=== PATIENT | female | born 1940 | race Caucasian/White ===

== ENCOUNTER 2021-01-22 11:11 | Emergency (ER) | payer MEDICARE, SELFPAY ==
[2021-01-22 11:12] VITALS: BP 167/100; PULSE 82; RESP 18; TEMP 36.5; O2SAT 97; BMI 31.1
--- NOTE | 2021-01-22 11:25 | ECG_ITS ---
APPROVED REPORT Exam: Resting ECG HR:65 bpm ECG Measurements Heart Rate 65 AXES [place] 170 P 49 QRSd 88 QRS 19 QT 426 T 64 QTc 443 Conclusion Normal sinus rhythm Poor R wave progression, previously noted Abnormal ECG Electronically signed by : Marky Grubbs MD 01/23/2021 22:12:05
[2021-01-22 11:43] LABS: Basophils % 0.3 % (0.1-2.0); Eosinophils % 0.2 % (0.1-12.0); Hematocrit 43.8 % (37.0-47.0); Hemoglobin 14.4 g/dL (12.2-16.2); Lymphocytes # 0.8 K/mm3 (0.7-4.5); Lymphocytes % 11.1 % (10-50); Mean Corpuscular HGB Conc 32.8 g/dL (31.8-35.4); Mean Corpuscular Hemoglobin 30.1 pg (27.0-31.2); Mean Corpuscular Volume 91.7 fl (81-99); Mean Platelet Volume 7.3 fl (7.4-10.4); Monocytes # 0.2 K/mm3 (0.1-1.0); Monocytes % 2.9 % (1.7-9.3); Neutrophils % 85.5 % (37.0-80.0); Platelet Count 332 K/mm3 (142-424); Red Blood Count 4.78 M/mm3 (4.20-5.40); Red Cell Distribution Width 13.1 % (11.5-17.5)
[2021-01-22 11:48] LABS: MANUAL DIFFERENTIAL MANUAL DIFFERENTIAL (MANUAL DIFF)
[2021-01-22 12:05] LABS: Alanine Aminotransferase 29 U/L (12-78); Albumin Level 4.1 g/dl (3.5-5.0); Albumin/Globulin Ratio 1.5 (1.1-1.8); Alkaline Phosphatase 98 U/L (38-126); Anion Gap 10.2 mEq/L (5-15); Aspartate Amino Transferase 29 U/L (14-36); Bilirubin,Total 0.5 mg/dl (0.2-1.3); Blood Urea Nitrogen 16 mg/dl (7-17); Calcium 8.8 mg/dl (8.4-10.2); Carbon Dioxide 28 mmol/L (22.0-30.0); Chloride 99 mmol/L (98-107); Creatinine Clearance Estimated 55 mL/min (50-200); Estimated Glomerular Filt Rate 69 ml/min (>60); GFR (African American) 83 ML/MIN (>60); Globulin 2.8 g/dL (1.3-3.2); Glucose 173 mg/dl (74-100); Lipase 48 U/L (23-300); Potassium 4.2 mmoL/L (3.5-5.1); Sodium 133 mmol/L (136-145); Total Protein,Serum 6.9 g/dl (6.3-8.2)
[2021-01-22 12:23] LABS: Troponin I < 0.01 ng/ml (0.00-0.034)
[2021-01-22 12:47] LABS: Lymphocytes % 18 % (10-50); Monocytes % 5 % (2-9); Neutrophils % 77 % (42-76); Platelet Estimate Normal; RBC Morphology Normal; Total Cells Counted 100
[2021-01-22 13:30] VITALS: BP 142/76; PULSE 59; O2SAT 95
--- NOTE | 2021-01-22 14:15 | CT_ITS ---
PROCEDURE: CT ABDOMEN PELVIS WO CON CLINICAL INDICATION: diarrhea COMPARISON: CT ABDPELWO CT abdomen pelvis wo con from 03/23/2018 TECHNIQUE: Axial images obtained with sagittal and coronal reformats. All CT scans at the facility use one or more dose reduction, viz: automated exposure control, ma/kV adjustment per patient size (including targeted exams where dose is matched to indication, i.e. head), or iterative reconstruction technique. FINDINGS: LOWER THORAX: No acute finding ABDOMEN & PELVIS: Coarse calcification is present in the right hepatic lobe laterally. The gallbladder is distended. The spleen, adrenal glands, have an unremarkable appearance. There is some minimal haziness at the pancreatic head region. This is nonspecific but does raise the question of mild pancreatitis. Please correlate clinical parameters. There is a small hiatal hernia. Bilateral renal cysts are present measuring 2 cm on the left and 1.2 cm on the right. No renal or ureteral calculi. No hydronephrosis. No intestinal obstruction or free air. There is a small umbilical hernia containing fat. No evidence of appendicitis no evidence of diverticulitis. No pelvic mass or abnormal fluid collection. Degenerative changes are present in the lumbar spine. IMPRESSION: Minimal haziness at the pancreatic head region nonspecific but does raise the question of mild pancreatitis. Please correlate with appropriate laboratory values. Mildly distended gallbladder. No radiopaque gallstones apparent. Dictated by: Erasmo Aguiar MD 01/22/2021 15:20 Erasmo Aguiar MD in [place] 01/22/2021 15:20
--- NOTE | 2021-01-22 14:16 | HMH.EDGENADL ---
ED Disposition Clinical Impression: General weakness UTI (urinary tract infection) Qualifiers: Urinary tract infection type: acute cystitis Hematuria presence: without hematuria Qualified Code(s): N30.00 - Acute cystitis without hematuria Disposition: Home, Self-Care Condition on Discharge: Good Instructions: Urinary Tract Infection Prescriptions: cephALEXin [Cephalexin 500mg Tab] 500 mg PO BID #20 tab Transmission Status: Pending to Clinic [facility] Ondansetron [Zofran 4mg ODT] 4 mg PO BIDP PRN #10 tab PRN Reason: Nausea Transmission Status: Pending to Clinic Pharm[facility] Referrals: Bridger Tena [Primary Care Provider] - - Critical Care Critical Care Time: No Attestation: On 01/22/21, the high probability of a clinically significant, sudden or life threatening deterioration of the following system(s) required my full and direct attention, intervention and personal management. The time I documented below is in addition to time spent performing reported procedures but includes the following listed in this critical care notation. Medical Decision Making - Medical Records Medical records reviewed: Yes: I reviewed the patient's medical records. - Madan Inquiry Pt receiving controlled substance: No Vital Signs: 01/22/21 11:12 01/22/21 13:30 Temperature 97.7 F Temperature Source Oral Pulse Rate 59 L Pulse Rate [Right Radial] 82 Respiratory Rate 18 Blood Pressure 142/76 H Blood Pressure [Right Arm] 167/100 H Blood Pressure Mean 98 Blood Pressure Mean [Right Arm] 122 Blood Pressure Source [Right Arm] Automatic Cuff Blood Pressure Position [Right Arm] Sitting 02 Sat by Pulse Oximetry 97 95 Oxygen Delivery Method Room Air - Lab Data Lab Results 01/22/21 11:30: WBC 7.0, RBC 4.78, Hgb 14.4, Hct 43.8, MCV 91.7, MCH 30.1, MCHC 32.8, RDW 13.1, Plt Count 332, MPV 7.3 L, Neut % (Auto) 85.5 H, Lymph % (Auto) 11.1, [place] % (Auto) 2.9, Eos % (Auto) 0.2, Baso % (Auto) 0.3, Neut # (Auto) 6.0, Lymph # (Auto) 0.8, [place] # (Auto) 0.2, Eos # (Auto) 0.0, Baso # (Auto) 0.0, Total Counted 100, Neutrophils % (Manual) 77 H, Lymphocytes % (Manual) 18, Monocytes % (Manual) 5, Platelet Estimate Normal, RBC Morphology Normal 01/22/21 11:30: Sodium 133 L, Potassium 4.2, Chloride 99, Carbon Dioxide 28, Anion Gap 10.2, BUN 16, Creatinine 0.80, Estimated Creat Clear 55, Estimated GFR 69, Est GFR ( Amer) 83, Glucose 173 H, Calcium 8.8, Total Bilirubin 0.5, AST 29, ALT 29, Alkaline Phosphatase 98, Troponin I < 0.01, Total Protein 6.9, Albumin 4.1, Globulin 2.8, Albumin/Globulin Ratio 1.5, Lipase 48 01/22/21 14:48: Urine Color Yellow, Urine Appearance Clear, Urine pH 6.0, Ur Specific [place] >= 1.030, Urine Protein Negative, Urine Glucose (UA) Negative, Urine Ketones Negative, Urine Blood Trace-i, Urine Nitrate Negative, Urine Bilirubin Negative, Urine Urobilinogen 0.2, Ur Leukocyte Esterase Trace, Urine RBC Occasional, Urine WBC 10-20, Ur Squamous Epith Cells 3-5, Urine Bacteria 1+ Result diagrams: 01/22/21 11:30 01/22/21 11:30 Orders (Tests/Meds): ED MEDICATIONS Discontinued Medications Generic Name Dose Route Start Last Admin Trade Name Freq PRN Reason Stop Dose Admin Ondansetron HCl 4 mg 01/22/21 11:26 01/22/21 11:33 Ondansetron 4mg/2ml Vial IV 01/22/21 11:27 4 mg ONCE ONE Administration ORDERS Category Date Time Status Troponin I Q3H Lab 01/22/21 17:30 Ordered Urine Culture Stat Micro 01/22/21 14:48 Received - ECG Data Tracing #1 I reviewed this ECG and interpreted as documented below: No ventricular rate of 65 bpm, [place] interval 170 ms, normal QTC. Sinus rhythm with nonspecific changes. ECG initial impression date: 01/22/21 ECG initial impression time: 11:25 - Reevaluation(s) Time: 16:36 Reevaluation #1: On reevaluation, patient is feeling better. Patient does have evidence of urinary tract infection. CT did show some irregularities near the pancreas, h
[2021-01-22 14:52] LABS: Microscopic, Urine URINE MICROSCOPIC (MICROSCOPIC)
[2021-01-22 15:07] LABS: Appearance,Urine CLEAR (Clear); Bilirubin,Urine Negative (Negative); Blood, Urine TRACE-I (Negative); Color,Urine YELLOW (Yellow); Glucose,Urine (UA) Negative (Negative); Ketones,Urine Negative (Negative); Leukocyte Esterase,Urine TRACE (Negative); Nitrate,Urine Negative (Negative); Protein,Urine Negative (Negative); Specific Gravity, Urine >= 1.030 (1.005-1.030); Urobilinogen,Urine 0.2 EU/dl (0.2)
[2021-01-22 15:24] LABS: Bacteria,Urine 1+ /lpf; RBC,Urine Occasional #/hpf (0-3)
[2021-01-22 16:43] VITALS: BP 149/89; PULSE 79; RESP 14; TEMP 37.1; O2SAT 97
== END 2021-01-22 16:44 | disposition home or self-care (01) ==
PROVIDERS: Emergency Provider Emergency Medicine; PCP Internal Medicine
DX: N30.00 Acute cystitis without hematuria (principal); I10 Essential (primary) hypertension; Z79.899 Other long term (current) drug therapy
CPT/HCPCS: 74176; 80053; 81001; 83690; 84484; 85007; 85025; 87086; 93005; 96374; 99283; J2405

== ENCOUNTER → 2021-01-29 11:16 | Outpatient (CLI) | payer MEDICARE, SELFPAY ==
--- NOTE | 2021-01-29 11:28 | ECG_ITS ---
APPROVED REPORT Exam: Resting ECG HR:63 bpm ECG Measurements Heart Rate 63 AXES [place] 170 P 65 QRSd 92 QRS 48 QT 430 T 44 QTc 440 Conclusion Normal sinus rhythm Poor R Wave Progression Abnormal ECG Electronically signed by : Bridger Tena MD 02/16/2021 16:21:12
[2021-01-29 11:39] LABS: Basophils % 0.5 % (0.1-2.0); Eosinophils % 0.2 % (0.1-12.0); Hematocrit 45.3 % (37.0-47.0); Lymphocytes # 1.2 K/mm3 (0.7-4.5); Lymphocytes % 12.4 % (10-50); Mean Corpuscular HGB Conc 33.1 g/dL (31.8-35.4); Mean Corpuscular Hemoglobin 30.2 pg (27.0-31.2); Mean Corpuscular Volume 91.3 fl (81-99); Mean Platelet Volume 8.1 fl (7.4-10.4); Monocytes # 0.6 K/mm3 (0.1-1.0); Neutrophils # 7.5 K/mm3 (1.8-7.8); Neutrophils % 80.9 % (37.0-80.0); Platelet Count 331 K/mm3 (142-424); Red Blood Count 4.96 M/mm3 (4.20-5.40); Red Cell Distribution Width 13.3 % (11.5-17.5); White Blood Count 9.3 K/mm3 (4.8-10.8)
[2021-01-29 11:47] LABS: Chloride 96 mmol/L (98-107); Potassium 3.8 mmoL/L (3.5-5.1); Sodium 135 mmol/L (136-145)
[2021-01-29 11:50] LABS: Alanine Aminotransferase 14 U/L (12-78); Albumin Level 4.3 g/dl (3.5-5.0); Albumin/Globulin Ratio 1.4 (1.1-1.8); Alkaline Phosphatase 95 U/L (38-126); Amylase 69 U/L (30-110); Anion Gap 12.8 mEq/L (5-15); Aspartate Amino Transferase 32 U/L (14-36); Bilirubin,Total 0.4 mg/dl (0.2-1.3); Blood Urea Nitrogen 16 mg/dl (7-17); Calcium 9.3 mg/dl (8.4-10.2); Carbon Dioxide 30 mmol/L (22.0-30.0); Estimated Glomerular Filt Rate 53 ml/min (>60); GFR (African American) 64 ML/MIN (>60); Glucose 111 mg/dl (74-100); Total Protein,Serum 7.3 g/dl (6.3-8.2)
[2021-01-29 11:59] LABS: Hemoglobin A1C 5.9 % (4.0-6.0)
[2021-01-29 12:06] LABS: Troponin I < 0.01 ng/ml (0.00-0.034)
== END ==
PROVIDERS: Visit Provider Internal Medicine
DX: R07.9 Chest pain, unspecified (principal); R10.13 Epigastric pain; R11.0 Nausea; R73.9 Hyperglycemia, unspecified; I10 Essential (primary) hypertension
CPT/HCPCS: 36415; 80053; 82150; 83036; 84484; 85025; 93005

== ENCOUNTER → 2021-02-08 07:49 | Outpatient (CLI) | payer MEDICARE, SELFPAY ==
--- NOTE | 2021-02-08 07:52 | US_ITS ---
PROCEDURE: US ABDOMEN COMPLETE CLINICAL INDICATION: EPIGASTRIC PAIN,NAUSEA COMPARISON: CT ABDPELWO CT abdomen pelvis wo con from 03/23/[address] ABDOMEN PELVIS WO CON from 01/22/2021 FINDINGS: PANCREAS: Unremarkable. No obvious mass or abnormal fluid collection. No ductal dilatation LIVER: No focal liver lesions demonstrated. Homogeneous echogenicity. No intrahepatic biliary ductal dilatation evident. There is appropriate direction of blood flow within a non dilated portal vein RIGHT KIDNEY: No hydronephrosis. 17 mm cyst lower pole right kidney. LEFT KIDNEY: 2 cm cyst along the mid aspect of the left kidney. No hydronephrosis GALLBLADDER: Numerous gallstones. No gallbladder wall thickening, pericholecystic fluid, or biliary dilatation. AORTA: No evidence of aneurysmal dilatation. SPLEEN: Unremarkable. Normal size and echogenicity ASCITES: None demonstrated. IMPRESSION: 1. Cholelithiasis. 2. Bilateral renal cysts Dictated by: Erasmo Aguiar MD 02/08/2021 14:03 Erasmo Aguiar MD in [place] 02/08/2021 14:03
--- NOTE | 2021-02-08 07:53 | FL_ITS ---
PROCEDURE: FL UPPER GI W AIR CLINICAL INDICATION: EPIGASTRIC PAIN,NAUSEA COMPARISON: No exams were available for comparison TECHNIQUE: FLUOROSCOPY TIME : 1.43 minutes FINDINGS: The esophagus, stomach, and duodenum bulb have an unremarkable appearance.There is no evidence of hiatal hernia. No ulcer or mass evident. There is mild prominence of the mucosa pattern within the descending portion of the duodenum. There is normal peristalsis. The duodenal C-loop is nondisplaced. IMPRESSION: No evidence of mass or ulcer. Mild prominence of the mucosa within the descending duodenum raising the possibility duodenitis. Dictated by: Erasmo Aguiar MD 02/08/2021 10:32 Erasmo Aguiar MD in [place] 02/08/2021 10:32
== END ==
PROVIDERS: PCP Internal Medicine; Visit Provider Internal Medicine
DX: R10.13 Epigastric pain (principal); R11.0 Nausea
CPT/HCPCS: 74246; 76700

== ENCOUNTER → 2021-03-12 11:26 | Outpatient (CLI) | payer MEDICARE, SELFPAY | PROVIDERS: Visit Provider Surgery | DX: Z01.812 Encounter for preprocedural laboratory examination (principal); Z11.52 Encounter for screening for COVID-19; Z13.810 Encounter for screening for upper gastrointestinal disorder; K21.9 Gastro-esophageal reflux disease without esophagitis | CPT/HCPCS: C9803; U0003; U0005 ==

== ENCOUNTER 2021-03-14 07:56 | Day surgery (SDC) | payer MEDICARE, SELFPAY ==
[2021-03-12 08:53] VITALS: BMI 32.1
[2021-03-14] VITALS (7 sets, daily range): BP systolic 89–154; BP diastolic 63–93; PULSE 63–75; RESP 16–18; TEMP 36.1–37; O2SAT 93–99
--- NOTE | 2021-03-14 09:02 | P.PN_ITS ---
[facility] Anesthesia Checklist - Structural Data Admitted From: Home Planned Operative Procedure/s: egd Consent for Planned Operative Procedure(s) Verified: Yes - Airway Assessment C-Spine Mobility Assessed: Yes TMJ Mobility Assessed: Yes Dentition: Edentulous - Neurological Assessment Level of Consciousness: Awake, Alert, Appropriate - Anesthesia Plan Anesthesia Risk discussed: Yes Anesthesia Plan: Verified ASA Class: II Anesthesia Type: MAC [facility] History I have reviewed the patient's past medical history: Yes Medical History: Reports:: Cancer, Hypertension Denies:: Diabetes Mellitus Type 1, Diabetes Mellitus Type 2, Internal Pacemaker, MRSA, Seizures *Have you ever received a pneumonia vaccine?: No *Have you received a flu vaccine this season?: Yes Other Medical History: Reports: Arthritis, Cataracts Anesthesia experience/problems:: none Other Surgeries: Yes: No Previous Surgery. No: Pacemaker Amputation: No Fractures: Yes - *Social History Last grade of school completed: High school graduate Smoking Status: Never smoker Alcohol Intake: never Alcohol Intake Frequency:: other Substance Use Type: denies use *Occupational Status:: retired *Travel in the last 8 weeks: None Family Hx:: Cancer
--- NOTE | 2021-03-14 09:32 | HMH.SCOPE ---
- Procedure: Date: 03/14/21 Patient Date of :: 1940 Procedure Performed:: Esophagogastroduodenoscopy with biopsies Indications:: Patient is a pleasant 80-year-old female. She is referred by Dr. Tena for gallbladder. She states that she has been told that she may have some issues with her gallbladder for many years due to her symptoms. However, she states for several months she has had some more apparent symptoms. She states that after she would eat she had coughing and vomiting. No significant abdominal pain but she does describe some right upper quadrant discomfort. She was started on omeprazole. This has helped her symptoms significantly. She had undergone upper GI and ultrasound. Gallbladder ultrasound reveals cholelithiasis and bilateral renal cysts. Upper GI reveals abnormality of the duodenum possibly consistent with duodenitis. Given the nature of her symptoms and findings on upper GI plan was made to proceed with upper endoscopy initially. She does state that her symptoms have been improved since she has been on medicine. Performing Provider:: Justino Corona MD Referring Provider:: Bridger Tena MD Sedation:: MAC sedation Procedure:: Patient was taken to endoscopy procedure room. She was positioned in lateral decubitus position. Adequate intravenous sedation was achieved with anesthesia titration of propofol. Olympus endoscope was inserted via the oropharynx. Esophagus was cannulated. She did have some probable cricopharyngeal spasm. Overall esophagus appeared unremarkable. Gastroesophageal junction was encountered at approximately 42 cm. Stomach was cannulated and insufflated. Retroflexion revealed no evidence of any appreciable hiatal hernia. She did have some linear gastropathy in the antrum. Gastric mucosal biopsies were obtained. Pylorus was traversed. Duodenal bulb and second and third portions of the duodenum appeared unremarkable. Endoscope was withdrawn as the stomach was desufflated. Findings:: Linear gastropathy Recommendations:: Follow-up on histopathology. When she returns to the office I will assess her symptoms regarding potential gallbladder etiology. Complications:: None immediately apparent Estimated blood obtained (mL): 2
== END 2021-03-14 10:37 | disposition home or self-care (01) ==
LOC: OUTP 07:57
PROVIDERS: PCP Internal Medicine; Visit Provider Surgery
PROC: 0DJ08ZZ Inspection of Upper Intestinal Tract, Via Natural or Artificial Opening Endoscopic (ICD-10-PCS; CPT 43235; principal; 2021-03-14 09:00)
DX: K31.89 Other diseases of stomach and duodenum (principal); J39.2 Other diseases of pharynx; I10 Essential (primary) hypertension; M19.90 Unspecified osteoarthritis, unspecified site; Z85.9 Personal history of malignant neoplasm, unspecified; Z80.9 Family history of malignant neoplasm, unspecified; Z79.899 Other long term (current) drug therapy
CPT/HCPCS: 43239; 88305

== ENCOUNTER 2021-08-27 14:13 | Emergency (ER) | payer MEDICARE, SELFPAY ==
--- NOTE | 2021-08-27 14:06 | ECG_ITS ---
APPROVED REPORT Exam: Resting ECG HR:96 bpm ECG Measurements Heart Rate 96 AXES [place] 157 P 7 QRSd 89 QRS 9 QT 350 T 61 QTc 404 Conclusion SINUS RHYTHM NONSPECIFIC ST & T-WAVE ABNORMALITY BORDERLINE ECG UNCONFIRMED REPORT Electronically signed by : Marky Grubbs MD 08/29/2021 14:45:28
[2021-08-27 14:13] VITALS: BP 151/99; PULSE 89; RESP 18; TEMP 37.1; O2SAT 96; BMI 29.6
--- NOTE | 2021-08-27 14:27 | XR_ITS ---
FINAL REPORT CLINICAL HISTORY: cough, chest pain FINDINGS: A single portable view of the chest was obtained. The heart size and pulmonary vascularity are within normal limits. The mediastinum is within normal limits. No acute pulmonary abnormality is identified. The bony thorax is intact. IMPRESSION: No active cardiopulmonary disease. Reviewed, Interpreted and Dictated by Justino Soliz III, MD Transcribed by Debra Hickey Authenticated and [facility]
[2021-08-27 14:40] LABS: Chloride 101 mmol/L (98-107); Potassium 3.9 mmoL/L (3.5-5.1); Sodium 136 mmol/L (136-145)
[2021-08-27 14:43] LABS: Alanine Aminotransferase 31 U/L (12-78); Albumin Level 4.2 g/dl (3.5-5.0); Albumin/Globulin Ratio 1.3 (1.1-1.8); Alkaline Phosphatase 122 U/L (38-126); Anion Gap 9.9 mEq/L (5-15); Aspartate Amino Transferase 37 U/L (14-36); Bilirubin,Total 0.4 mg/dl (0.2-1.3); Blood Urea Nitrogen 17 mg/dl (7-17); Calcium 8.9 mg/dl (8.4-10.2); Carbon Dioxide 29 mmol/L (22.0-30.0); Creatinine Clearance Estimated 55 mL/min (50-200); Estimated Glomerular Filt Rate 60 ml/min (>60); GFR (African American) 73 ML/MIN (>60); Globulin 3.2 g/dL (1.3-3.2); Glucose 128 mg/dl (74-100); Lipase 41 U/L (23-300); Total Protein,Serum 7.4 g/dl (6.3-8.2)
--- NOTE | 2021-08-27 14:46 | HMH.EDCP ---
ED Disposition Clinical Impression: Chest wall pain Disposition: Home, Self-Care Condition on Discharge: Good Instructions: DI for Atypical Chest Pain Referrals: Bridger Tena MD [Primary Care Provider] - Chriss Nixon MD [Staff Physician] - - Critical Care Critical Care Time: No Attestation: On 08/27/21, the high probability of a clinically significant, sudden or life threatening deterioration of the following system(s) required my full and direct attention, intervention and personal management. The time I documented below is in addition to time spent performing reported procedures but includes the following listed in this critical care notation. Medical Decision Making - Medical Records Medical records reviewed: Yes: I reviewed the patient's medical records. - Madan Inquiry Pt receiving controlled substance: Yes Madan was queried for this patient: No Reason not queried -: Madan login issues Risks and benefits of using a controlled substance: were discussed with pt by me Vital Signs: 08/27/21 14:13 08/27/21 15:18 Temperature 98.7 F Temperature Source Oral Pulse Rate 89 Pulse Rate [Left Radial] 89 Respiratory Rate 18 Blood Pressure 132/72 Blood Pressure [Right Arm] 151/99 H Blood Pressure Mean [Right Arm] 116 Blood Pressure Source [Right Arm] Automatic Cuff Blood Pressure Position [Right Arm] Sitting 02 Sat by Pulse Oximetry 96 89 L Oxygen Delivery Method Room Air - Lab Data Lab Results 08/27/21 14:15: WBC 10.6, RBC 4.83, Hgb 14.5, Hct 43.8, MCV 90.5, MCH 30.0, MCHC 33.1, RDW 13.6, Plt Count 302, MPV 7.5, Neut % (Auto) 76.5, Lymph % (Auto) 15.6, Person % (Auto) 6.7, Eos % (Auto) 0.7, Baso % (Auto) 0.5, Neut # (Auto) 8.1 H, Lymph # (Auto) 1.7, Person # (Auto) 0.7, Eos # (Auto) 0.1, Baso # (Auto) 0.1 08/27/21 14:15: Sodium 136, Potassium 3.9, Chloride 101, Carbon Dioxide 29, Anion Gap 9.9, BUN 17, Creatinine 0.90, Estimated Creat Clear 55, Estimated GFR 60, Est GFR ( Amer) 73, Glucose 128 H, Calcium 8.9, Total Bilirubin 0.4, AST 37 H, ALT 31, Alkaline Phosphatase 122, Troponin I < 0.01, NT-Pro-B Natriuret Pep 97.4, Total Protein 7.4, Albumin 4.2, Globulin 3.2, Albumin/Globulin Ratio 1.3, Lipase 41 Result diagrams: 08/27/21 14:15 08/27/21 14:15 Orders (Tests/Meds): ED MEDICATIONS Discontinued Medications Generic Name Dose Route Start Last Admin Trade Name Freq PRN Reason Stop Dose Admin Iopamidol 100 ml 08/27/21 15:18 08/27/21 15:19 Iopamidol-370 (76%);100ml Bottle IV 08/27/21 15:19 100 ml ONCE ONE Administration Morphine Sulfate 4 mg 08/27/21 14:27 08/27/21 14:52 Morphine 4mg/Ml Syringe IV 08/27/21 14:28 4 mg ONCE ONE Administration Ondansetron HCl 4 mg 08/27/21 14:27 08/27/21 14:52 Ondansetron 4mg/2ml Vial IV 08/27/21 14:28 4 mg ONCE ONE Administration Sodium Chloride 40 ml 08/27/21 15:18 08/27/21 15:19 0.9 % Sodium Chloride 50 Ml Vial IV 08/27/21 15:19 40 ml ONCE ONE Administration Sodium Chloride 10 ml 08/27/21 15:18 08/27/21 15:19 Sodium Chloride 0.9% 10ml Syr (Rad Only) IV 08/27/21 15:19 10 ml ONCE ONE Administration ORDERS Category Date Time Status Troponin I Q3H Lab 08/27/21 17:30 Ordered Troponin I Q3H Lab 08/27/21 20:30 Ordered - Radiology Data #1 Image(s): Chest Image Reviewed: Yes I reviewed the patient's radiology results, Yes I reviewed the patient's radiology image, Yes I have reviewed radiologist's interpretation Preliminary Findings: Normal/NAD - CT Data CT Scan: Chest Time Received: 16:[address] Reviewed: Yes: I have reviewed the patient's CT results, I have viewed the radiologist's interpretation Findings Narrative: IMPRESSION: 1. No evidence of pulmonary embolism. 2. Mild bibasilar atelectasis. - ECG Data Tracing #1 Normal strength rate and no disease beats per minute, SD 157 ms, normal QTC. Sinus rhythm with nonspecific changes. ECG initial impres
[2021-08-27 14:52] LABS: NT Pro Brain Natriuretic Pep. 97.4 pg/mL (0-450)
--- NOTE | 2021-08-27 14:55 | CT_ITS ---
FINAL REPORT TECHNIQUE: Then section axial CT images of the chest were obtained with contrast. Three-D reformatted images were also obtained.This study was performed with techniques to keep radiation doses as low as reasonably achievable (ALARA). Individualized dose reduction techniques using automated exposure control or adjustment of mA and/or kV according to the patient''s size were employed. CLINICAL HISTORY: chest pain FINDINGS: There is motion artifact on many of the images. There is no evidence of pulmonary embolism. There is no evidence of thoracic aortic aneurysm or dissection. There is no evidence of mediastinal or hilar mass or adenopathy. There is mild bibasilar atelectasis. There is no evidence of pulmonary mass or suspicious nodule. Limited images of the upper abdomen demonstrate coarse calcification in the lateral liver dome. There is a small hiatal hernia. IMPRESSION: 1. No evidence of pulmonary embolism. 2. Mild bibasilar atelectasis. Reviewed, Interpreted and Dictated by Justino Soliz III, MD Transcribed by Raffy Davila Authenticated and [facility]
[2021-08-27 14:57] LABS: Troponin I < 0.01 ng/ml (0.00-0.034)
[2021-08-27 15:00] LABS: Basophils # 0.1 K/mm3 (0-0.2); Basophils % 0.5 % (0.1-2.0); Eosinophils # 0.1 K/mm3 (0.0-0.4); Eosinophils % 0.7 % (0.1-12.0); Hematocrit 43.8 % (37.0-47.0); Hemoglobin 14.5 g/dL (12.2-16.2); Lymphocytes # 1.7 K/mm3 (0.7-4.5); Lymphocytes % 15.6 % (10-50); Mean Corpuscular HGB Conc 33.1 g/dL (31.8-35.4); Mean Corpuscular Volume 90.5 fl (81-99); Mean Platelet Volume 7.5 fl (7.4-10.4); Monocytes # 0.7 K/mm3 (0.1-1.0); Monocytes % 6.7 % (1.7-9.3); Neutrophils # 8.1 K/mm3 (1.8-7.8); Neutrophils % 76.5 % (37.0-80.0); Platelet Count 302 K/mm3 (142-424); Red Blood Count 4.83 M/mm3 (4.20-5.40); Red Cell Distribution Width 13.6 % (11.5-17.5); White Blood Count 10.6 K/mm3 (4.8-10.8)
[2021-08-27 15:18] VITALS: BP 132/72; PULSE 89; O2SAT 89
--- NOTE | 2021-08-27 15:33 | PC.NURSE ---
pt laying in bed resting. Updated her on POC and that we were waiting on CT results. Pt agreeable and had no needs at this time
--- NOTE | 2021-08-27 16:27 | PC.NURSE ---
pt ambulated to restroom independently, given dry brief at this time. Pt has no other needs. Updated on POC
[2021-08-27 16:38] VITALS: BP 154/90; PULSE 72; RESP 16; TEMP 36.8; O2SAT 98
== END 2021-08-27 16:39 | disposition home or self-care (01) ==
PROVIDERS: Emergency Provider Emergency Medicine; PCP Internal Medicine
DX: R07.2 Precordial pain (principal); J98.11 Atelectasis; I10 Essential (primary) hypertension; M19.90 Unspecified osteoarthritis, unspecified site; H26.9 Unspecified cataract; Z85.9 Personal history of malignant neoplasm, unspecified; Z80.9 Family history of malignant neoplasm, unspecified
CPT/HCPCS: 71045; 71275; 80053; 83690; 83880; 84484; 85025; 93005; 96374; 96375; 99285; J2405; Q9967

== ENCOUNTER → 2021-12-17 16:13 | Outpatient (CLI) | payer MEDICARE, SELFPAY ==
[2021-12-17 17:38] LABS: Alanine Aminotransferase 22 U/L (12-78); Albumin Level 3.8 g/dl (3.5-5.0); Albumin/Globulin Ratio 1.4 (1.1-1.8); Alkaline Phosphatase 131 U/L (38-126); Anion Gap 16.8 mEq/L (5-15); Aspartate Amino Transferase 30 U/L (14-36); Bilirubin,Total 0.4 mg/dl (0.2-1.3); Blood Urea Nitrogen 19 mg/dl (7-17); Calcium 8.4 mg/dl (8.4-10.2); Carbon Dioxide 26 mmol/L (22.0-30.0); Chloride 97 mmol/L (98-107); Chol/HDL Ratio 4.1 (1-3.5); Cholesterol 174 mg/dl (140-200); Estimated Glomerular Filt Rate 60 ml/min (>60); GFR (African American) 72 ML/MIN (>60); Globulin 2.8 g/dL (1.3-3.2); Glucose 133 mg/dl (74-100); HDL Cholesterol 42 mg/dl (40-60); Potassium 3.8 mmoL/L (3.5-5.1); Sodium 136 mmol/L (136-145); Total Protein,Serum 6.6 g/dl (6.3-8.2); Triglycerides 192 mg/dl (30-150); VLDL Cholesterol 38 mg/dL (0-40)
[2021-12-17 17:48] LABS: Direct LDL Cholesterol 94.64 mg/dL (100-129)
== END ==
PROVIDERS: PCP Internal Medicine; Visit Provider Internal Medicine
DX: I10 Essential (primary) hypertension (principal); E78.5 Hyperlipidemia, unspecified; K80.20 Calculus of gallbladder without cholecystitis without obstruction; Z85.41 Personal history of malignant neoplasm of cervix uteri
CPT/HCPCS: 80053; 80061

== ENCOUNTER 2022-04-06 16:17 | Emergency (ER) | payer MEDICARE, SELFPAY ==
[2022-04-06 16:50] VITALS: BP 173/95; PULSE 88; RESP 20; TEMP 36.6; O2SAT 98; BMI 31.5
--- NOTE | 2022-04-06 16:53 | EXP.UTC ---
Discharge Plan Disposition Patient Disposition: Home, Self-Care Condition: Good Prescriptions Prescriptions: New ondansetron 8 mg Tablet,Disintegrating 8 mg PO QID PRN (Reason: Nausea And Vomiting) Qty: 16 0RF metoclopramide HCl [Reglan] 5 mg tablet 5 mg PO DAILY Qty: 30 0RF No Action omeprazole 40 mg capsule,delayed release(DR/EC) 40 mg PO DAILY losartan 50 mg tablet 50 mg PO DAILY Referrals Follow up/Referrals: Bridger Tena MD [Primary Care Provider] - See instructions Activity Restrictions/Add. Instructions Additional Instructions/Restrictions: Stick to a clear liquid diet for the next day or two. Return to the emergency department if you feel worse in any way. Follow-up with your primary care doctor in about 3 days if you are not any better. Clinical Impressions Clinical Impression: Gastroenteritis Instructions Patient Instructions: DI for Nausea -- Adult, Nausea and Vomiting-Adult Discharge ED Provider: Jasmyne David [facility] General Chief complaint: Nausea/Vomiting/Diarrhea Stated complaint: cough V&D Bp High Time Seen by Provider: 04/06/22 16:53 History of Present Illness Provider Complaint: She is here with complaints of fever, chills, chest congestion and weakness for the past 1 week. Related Data Home Medications Medication Instructions Recorded Confirmed losartan 50 mg tablet 50 mg PO DAILY bp 02/19/21 04/06/22 omeprazole 40 mg capsule,delayed 40 mg PO DAILY acid reflux 02/19/21 04/06/22 release Previous Rx's Medication Instructions Recorded metoclopramide HCl 5 mg tablet 5 mg PO DAILY #30 tabs 04/06/22 (Reglan) ondansetron 8 mg disintegrating 8 mg PO QID PRN Nausea And 04/06/22 tablet Vomiting #16 tabs Allergies Allergy/AdvReac Type Severity Reaction Status Date / Time No Known Allergies Allergy Verified 04/06/22 16:58 [facility] Disclaimer: The information contained in this section may have been updated after the patient was seen, as this information can be updated by other users. Medical History Hypertension Family History Other No significant family history Social History Smoking Status: Never smoker alcohol intake: never substance use type: denies use current occupational status: retired Travel in the last 8 weeks: None caffeine: Yes ROS Obtained: Yes All systems reviewed & no additional complaints except as documented Constitutional Constitutional: Reports chills and Reports fever(s) Eyes Eyes: Denies eye discharge ENT Ears, Nose, Mouth, and Throat: Reports as per HPI Cardiovascular Cardiovascular: Denies chest pain Respiratory Respiratory: Denies chest congestion and Reports cough Gastrointestinal Gastrointestingal: Reports nausea; Denies abdominal pain, constipation, cramping, diarrhea or vomiting Musculoskeletal Musculoskeletal: Denies arthralgias Integumentary/Breasts Skin/Breast: Denies rash Neurologic Neurologic: Denies paresthesias Physical Exam General General appearance: alert and lethargic Head Head exam: atraumatic, normocephalic and normal inspection Eye Eye exam: Present normal appearance, PERRL and EOMI ENT ENT exam: Present normal exam, normal oropharynx, mucous membranes moist, TM's normal bilaterally and normal external ear exam Neck Neck exam: Present normal inspection, full ROM and trachea midline; Absent meningismus or lymphadenopathy Chest Chest inspection: Present normal inspection and symmetric chest wall rise; Absent tenderness Respiratory Respiratory exam: Present normal lung sounds bilaterally; Absent respiratory distress Cardiovascular Cardiovascular exam: Present regular rate and normal rhythm; Absent JVD Abdominal Exam Abdominal exam: Present soft and normal bowel sounds; Absent distention, tenderness or guarding
--- NOTE | 2022-04-06 16:55 | XR_ITS ---
PROCEDURE INFORMATION: Exam: XR Chest Exam date and time: 04/06/2022 4:56 PM Age: 81 years old Clinical indication: Cough TECHNIQUE: Imaging protocol: Radiologic exam of the chest. Views: 2 views. COMPARISON: CR XR CHEST PORTABLE 08/27/2021 2:30 PM FINDINGS: Lungs: Calcified granuloma at the left lung base. No acute airspace consolidation. Pleural spaces: Unremarkable. No pleural effusion. No pneumothorax. Heart/Mediastinum: Unremarkable. No cardiomegaly. Vasculature: Mild aortic tortuosity. Bones/joints: Unremarkable. IMPRESSION: No acute findings.
[2022-04-06 18:01] VITALS: BP 125/65; PULSE 83; RESP 20; O2SAT 96
[2022-04-06 18:04] VITALS: BP 175/66; PULSE 85; RESP 18; TEMP 36.8; O2SAT 97; BMI 33.1
[2022-04-06 18:19] LABS: Chloride 101 mmol/L (98-107)
[2022-04-06 18:20] LABS: Potassium 3.8 mmoL/L (3.5-5.1); Sodium 133 mmol/L (136-145)
[2022-04-06 18:22] LABS: Alanine Aminotransferase 35 U/L (12-78); Alkaline Phosphatase 106 U/L (38-126); Aspartate Amino Transferase 30 U/L (14-36); Bilirubin,Total 0.5 mg/dl (0.2-1.3); Blood Urea Nitrogen 16 mg/dl (7-17); Creatinine Clearance Estimated 57 mL/min (50-200); Estimated Glomerular Filt Rate 60 ml/min (>60); GFR (African American) 72 ML/MIN (>60)
[2022-04-06 18:23] LABS: Albumin Level 4.1 g/dl (3.5-5.0); Albumin/Globulin Ratio 1.3 (1.1-1.8); Anion Gap 9.8 mEq/L (5-15); Calcium 8.6 mg/dl (8.4-10.2); Carbon Dioxide 26 mmol/L (22.0-30.0); Globulin 3.2 g/dL (1.3-3.2); Glucose 151 mg/dl (74-100); Total Protein,Serum 7.3 g/dl (6.3-8.2)
[2022-04-06 18:26] LABS: Basophils # 0.1 K/mm3 (0-0.2); Basophils % 0.6 % (0.1-2.0); Eosinophils % 0.3 % (0.1-12.0); Hematocrit 42.8 % (37.0-47.0); Hemoglobin 14.1 g/dL (12.2-16.2); Lymphocytes # 0.6 K/mm3 (0.7-4.5); Lymphocytes % 7.4 % (10-50); Mean Corpuscular HGB Conc 32.9 g/dL (31.8-35.4); Mean Corpuscular Hemoglobin 29.5 pg (27.0-31.2); Mean Corpuscular Volume 89.6 fl (81-99); Mean Platelet Volume 7.9 fl (7.4-10.4); Monocytes # 0.4 K/mm3 (0.1-1.0); Monocytes % 4.3 % (1.7-9.3); Neutrophils # 7.6 K/mm3 (1.8-7.8); Neutrophils % 87.4 % (37.0-80.0); Platelet Count 278 K/mm3 (142-424); Red Blood Count 4.78 M/mm3 (4.20-5.40); Red Cell Distribution Width 13.5 % (11.5-17.5); White Blood Count 8.7 K/mm3 (4.8-10.8)
[2022-04-06 18:27] LABS: MANUAL DIFFERENTIAL MANUAL DIFFERENTIAL (MANUAL DIFF)
--- NOTE | 2022-04-06 18:38 | PC.NURSE ---
DR CONRAD AT BEDSIDE
--- NOTE | 2022-04-06 18:41 | HMH.EDNVD ---
Discharge Plan Disposition Patient Disposition: Home, Self-Care Condition: Good Prescriptions Prescriptions: New ondansetron 8 mg Tablet,Disintegrating 8 mg PO QID PRN (Reason: Nausea And Vomiting) Qty: 16 0RF metoclopramide HCl [Reglan] 5 mg tablet 5 mg PO DAILY Qty: 30 0RF No Action omeprazole 40 mg capsule,delayed release(DR/EC) 40 mg PO DAILY losartan 50 mg tablet 50 mg PO DAILY Referrals Follow up/Referrals: Bridger Tena MD [Primary Care Provider] - See instructions Activity Restrictions/Add. Instructions Additional Instructions/Restrictions: Stick to a clear liquid diet for the next day or two. Return to the emergency department if you feel worse in any way. Follow-up with your primary care doctor in about 3 days if you are not any better. Clinical Impressions Clinical Impression: Gastroenteritis Instructions Patient Instructions: DI for Nausea -- Adult, Nausea and Vomiting-Adult Discharge ED Provider: Jasmyne David Nausea/Vomiting/Diarrhea HPI General Chief complaint: Nausea/Vomiting/Diarrhea Stated complaint: cough V&D Bp High Time Seen by Provider: 04/06/22 16:53 Mode of Arrival: Wheelchair Source of Information: Patient Limitations: No Limitations Description of Symptoms (Recalled from ER Triage Doc. by RN): PT FROM [facility] WITH C/O VOMITING AND DIARRHEA THAT STARTED TODAY AT 2-3PM. PT REPORTS COUGH X 3 WEEKS, STATES SHES BEEN TREATED FOR BRONCHITIS. REPORTS WEAKNESS History of Present Illness HPI Narrative: The patient presents to the emergency department complaining of some nausea vomiting and diarrhea. This began today. She has been having bronchitis symptoms for the last week or 2. She denies any blood in her stool or vomitus. She denies any other symptoms. complaint: nausea, vomiting and diarrhea Related Data Home Medications Medication Instructions Recorded Confirmed losartan 50 mg tablet 50 mg PO DAILY bp 02/19/21 04/06/22 omeprazole 40 mg capsule,delayed 40 mg PO DAILY acid reflux 02/19/21 04/06/22 release Previous Rx's Medication Instructions Recorded metoclopramide HCl 5 mg tablet 5 mg PO DAILY #30 tabs 04/06/22 (Reglan) ondansetron 8 mg disintegrating 8 mg PO QID PRN Nausea And 04/06/22 tablet Vomiting #16 tabs Allergies Allergy/AdvReac Type Severity Reaction Status Date / Time No Known Allergies Allergy Verified 04/06/22 16:58 [facility] Disclaimer: The information contained in this section may have been updated after the patient was seen, as this information can be updated by other users. Medical History (Updated 04/06/22 @ 18:59 by Maribell Cason RN) Hypertension Family History (Updated 04/06/22 @ 18:59 by Maribell Cason RN) Other No significant family history Social History (Updated 04/06/22 @ 18:59 by Maribell Cason RN) Smoking Status: Never smoker alcohol intake: never substance use type: denies use current occupational status: retired Travel in the last 8 weeks: None caffeine: Yes ROS Obtained: Yes All systems reviewed & no additional complaints except as documented Physical Exam General General appearance: alert Head Head exam: atraumatic Eye Eye exam: Present normal appearance, PERRL and EOMI; Absent scleral icterus or jaundice ENT ENT exam: Present normal exam Neck Neck exam: Present normal inspection and full ROM; Absent tenderness or meningismus Chest Chest inspection: Present normal inspection and symmetric chest wall rise; Absent tenderness Respiratory Respiratory exam: Present normal lung sounds bilaterally; Absent respiratory distress or accessory muscle use Cardiovascular Cardiovascular exam: Present regular rate, normal rhythm and normal heart sounds Abdominal Exam Abdominal exam: Present soft, tenderness and normal bowel sounds; Absent distention, heel tap sign, Canales's sign, Rovsing's sign, tenderness at McBurney's Point or mass Abdominal tenderness: Present epi
[2022-04-06 19:09] LABS: Lymphocytes % 8 % (10-50); Monocytes % 4 % (2-9); Neutrophils % 88 % (42-76); Platelet Estimate Normal; RBC Morphology Normal; Total Cells Counted 100
--- NOTE | 2022-04-06 19:29 | PC.NURSE ---
Pt began vomiting and dry heaving. ordered Zofran IVP, this was given per RAC PIV without difficulty
[2022-04-06 19:30] VITALS: BP 170/65; PULSE 82; RESP 18; TEMP 36.6; O2SAT 98
--- NOTE | 2022-04-06 19:30 | XR_ITS ---
PROCEDURE INFORMATION: Exam: XR Complete Acute Abdomen Series Including Chest Exam date and time: 04/06/2022 7:28 PM Age: 81 years old Clinical indication: Abdominal pain; Additional info: Abdominal discomfort with vomiting TECHNIQUE: Imaging protocol: Radiologic exam. Complete acute abdomen series, including 2 or more views of the abdomen and a single view chest. COMPARISON: CR XR CHEST 2V 04/06/2022 4:56 PM FINDINGS: Lungs: Calcified granuloma at the left lung base. No acute airspace consolidation. Pleural spaces: Normal. No pleural effusions. No pneumothorax. Heart/Mediastinum: Normal. No cardiomegaly. Gastrointestinal tract: Normal. No bowel dilation. Intraperitoneal space: Normal. No free air. Vasculature: Mild aortic tortuosity. Bones/joints: Degenerative changes within the lumbar spine, pubic symphysis and at both hips. Soft tissues: Normal. IMPRESSION: No acute findings.
--- NOTE | 2022-04-06 19:35 | PC.NURSE ---
Pt being taken to Xray via wheelchair
--- NOTE | 2022-04-06 19:42 | PC.NURSE ---
pt back from xray
== END 2022-04-06 20:02 | disposition home or self-care (01) ==
LOC: UTC 16:39 → ER 17:34
PROVIDERS: Emergency Provider Emergency Medicine; PCP Internal Medicine
DX: K52.9 Noninfective gastroenteritis and colitis, unspecified (principal); I10 Essential (primary) hypertension
CPT/HCPCS: 71046; 74021; 80053; 85007; 85025; 96374; 96375; 99285; J2405

== ENCOUNTER → 2022-06-17 12:54 | Outpatient (CLI) | payer MEDICARE, SELFPAY ==
[2022-06-17 14:34] LABS: Basophils % 0.2 % (0.1-2.0); Eosinophils # 0.1 K/mm3 (0.0-0.4); Eosinophils % 0.6 % (0.1-12.0); Hematocrit 46.8 % (37.0-47.0); Hemoglobin 14.9 g/dL (12.2-16.2); Lymphocytes # 1.3 K/mm3 (0.7-4.5); Lymphocytes % 12.6 % (10-50); Mean Corpuscular HGB Conc 31.9 g/dL (31.8-35.4); Mean Corpuscular Hemoglobin 29.2 pg (27.0-31.2); Mean Corpuscular Volume 91.8 fl (81-99); Mean Platelet Volume 8.5 fl (7.4-10.4); Monocytes # 0.6 K/mm3 (0.1-1.0); Monocytes % 5.4 % (1.7-9.3); Neutrophils # 8.6 K/mm3 (1.8-7.8); Neutrophils % 81.2 % (37.0-80.0); Platelet Count 286 K/mm3 (142-424); Red Cell Distribution Width 13.8 % (11.5-17.5); White Blood Count 10.5 K/mm3 (4.8-10.8)
[2022-06-17 15:50] LABS: Chloride 101 mmol/L (98-107)
[2022-06-17 15:51] LABS: Potassium 4.1 mmoL/L (3.5-5.1); Sodium 137 mmol/L (136-145)
[2022-06-17 15:53] LABS: Alanine Aminotransferase 25 U/L (12-78); Aspartate Amino Transferase 27 U/L (14-36); Blood Urea Nitrogen 20 mg/dl (7-17); Estimated Glomerular Filt Rate 53 ml/min (>60); GFR (African American) 64 ML/MIN (>60)
[2022-06-17 15:54] LABS: Albumin Level 4.2 g/dl (3.5-5.0); Albumin/Globulin Ratio 1.8 (1.1-1.8); Alkaline Phosphatase 101 U/L (38-126); Anion Gap 13.1 mEq/L (5-15); Bilirubin,Total 0.5 mg/dl (0.2-1.3); Calcium 8.9 mg/dl (8.4-10.2); Carbon Dioxide 27 mmol/L (22.0-30.0); Chol/HDL Ratio 3.3 (1-3.5); Cholesterol 166 mg/dl (140-200); Globulin 2.4 g/dL (1.3-3.2); Glucose 104 mg/dl (74-100); HDL Cholesterol 50 mg/dl (40-60); Total Protein,Serum 6.6 g/dl (6.3-8.2); Triglycerides 173 mg/dl (30-150); VLDL Cholesterol 35 mg/dL (0-40)
[2022-06-17 16:05] LABS: Direct LDL Cholesterol 86.03 mg/dL (100-129)
== END ==
PROVIDERS: PCP Internal Medicine; Visit Provider Internal Medicine
DX: I10 Essential (primary) hypertension (principal); E78.5 Hyperlipidemia, unspecified; K80.20 Calculus of gallbladder without cholecystitis without obstruction; M47.812 Spondylosis without myelopathy or radiculopathy, cervical region; Z85.41 Personal history of malignant neoplasm of cervix uteri
CPT/HCPCS: 80053; 80061; 85025

== ENCOUNTER → 2022-12-16 16:47 | Outpatient (CLI) | payer MEDICARE, SELFPAY ==
[2022-12-16 18:35] LABS: Alanine Aminotransferase 25 U/L (12-78); Albumin Level 4.1 g/dl (3.5-5.0); Albumin/Globulin Ratio 1.4 (1.1-1.8); Alkaline Phosphatase 115 U/L (38-126); Anion Gap 12.1 mEq/L (5-15); Aspartate Amino Transferase 30 U/L (14-36); Bilirubin,Total 0.3 mg/dl (0.2-1.3); Blood Urea Nitrogen 21 mg/dl (7-17); Calcium 9.2 mg/dl (8.4-10.2); Carbon Dioxide 32 mmol/L (22.0-30.0); Chloride 101 mmol/L (98-107); Chol/HDL Ratio 4.6 (1-3.5); Cholesterol 207 mg/dl (140-200); Estimated Glomerular Filt Rate 53 ml/min (>60); GFR (African American) 64 ML/MIN (>60); Glucose 90 mg/dl (74-100); HDL Cholesterol 45 mg/dl (40-60); Potassium 5.1 mmoL/L (3.5-5.1); Sodium 140 mmol/L (136-145); Total Protein,Serum 7.1 g/dl (6.3-8.2); Triglycerides 201 mg/dl (30-150); VLDL Cholesterol 40 mg/dL (0-40)
[2022-12-16 18:46] LABS: Direct LDL Cholesterol 111.65 mg/dL (100-129)
== END ==
PROVIDERS: PCP Internal Medicine; Visit Provider Internal Medicine
DX: I10 Essential (primary) hypertension (principal)
CPT/HCPCS: 80053; 80061

== ENCOUNTER 2023-05-20 10:27 | Day surgery (SDC) | payer MEDICARE, SELFPAY ==
[2023-05-19 12:47] VITALS: BMI 32.4
[2023-05-20 11:43] VITALS: BP 154/89; PULSE 71; RESP 20; TEMP 36.5; O2SAT 97
[2023-05-20] MEDS: TETRACAINE 0.5% OPTH SOL 15ML OP ×3 (11:48→11:50)
[2023-05-20] MEDS: PHENYLEPHRINE 2.5% OPHTH SOLN 2ML 0.0500000000000000028 ML OP ×3 (11:48→11:50)
[2023-05-20] MEDS: CYCLOPENTOLATE 2% OPHTH SOLN 2ML BOTTLE OP ×3 (11:48→11:51)
[2023-05-20] MEDS: SODIUM CHLORIDE 0.9% 10ML FLUSH SYRINGE 10 ML IV ×2 (11:49→13:27)
[2023-05-20 13:24] VITALS: BP 168/84; PULSE 71; RESP 18; O2SAT 96
[2023-05-20] MEDS: MIDAZOLAM 2MG/2ML VIAL 1 MG IV (13:27)
[2023-05-20] MEDS: TOBRAMYCIN/DEX OPTH SUSP 2.5ML OP (13:28)
[2023-05-20] MEDS: TIMOLOL 0.5% OPTH SOLN 5ML OP (13:28)
[2023-05-20] MEDS: LIDOCAINE 1% PF 2ML AMPULE 2 ML IJ (13:28)
[2023-05-20 13:29] VITALS: BP 162/84; PULSE 72; RESP 18; O2SAT 99
[2023-05-20 13:33] VITALS: BP 147/86; PULSE 69; RESP 18; O2SAT 100
[2023-05-20 13:38] VITALS: BP 136/76; PULSE 64; RESP 16; O2SAT 100
[2023-05-20 13:42] VITALS: BP 149/87; PULSE 66; RESP 16; TEMP 36.3; O2SAT 98
== END 2023-05-20 13:57 | disposition home or self-care (01) ==
PROVIDERS: PCP Internal Medicine; Visit Provider Ophthalmology
PROC: (CPT 66984; principal; 2023-05-20 14:00)
DX: H25.811 Combined forms of age-related cataract, right eye (principal); H53.149 Visual discomfort, unspecified
CPT/HCPCS: 66984; V2632

== ENCOUNTER 2023-06-03 07:55 | Day surgery (SDC) | payer MEDICARE, SELFPAY ==
[2023-05-28 10:01] VITALS: BMI 33.8
[2023-06-03] MEDS: TETRACAINE 0.5% OPTH SOL 15ML OP ×3 (08:00→08:10)
[2023-06-03] MEDS: PHENYLEPHRINE 2.5% OPHTH SOLN 2ML 0.0500000000000000028 ML OP ×3 (08:00→08:10)
[2023-06-03] MEDS: CYCLOPENTOLATE 2% OPHTH SOLN 2ML BOTTLE OP ×3 (08:00→08:10)
[2023-06-03 08:12] VITALS: BP 142/78; PULSE 79; RESP 16; TEMP 36.7; O2SAT 95
[2023-06-03] MEDS: SODIUM CHLORIDE 0.9% 10ML FLUSH SYRINGE 10 ML IV ×2 (08:20→09:08)
[2023-06-03 09:02] VITALS: BP 131/70; PULSE 71; RESP 19; O2SAT 96
[2023-06-03] MEDS: MIDAZOLAM 2MG/2ML VIAL 1 MG IV (09:02)
[2023-06-03 09:07] VITALS: BP 123/68; PULSE 71; RESP 20; O2SAT 96
[2023-06-03] MEDS: LIDOCAINE 1% PF 2ML AMPULE 2 ML IJ (09:09)
[2023-06-03] MEDS: TIMOLOL 0.5% OPTH SOLN 5ML OP (09:09)
[2023-06-03] MEDS: TOBRAMYCIN/DEX OPTH SUSP 2.5ML OP (09:09)
[2023-06-03 09:12] VITALS: BP 134/68; PULSE 71; RESP 20; O2SAT 95
[2023-06-03 09:17] VITALS: BP 123/68; PULSE 69; RESP 20; O2SAT 95
[2023-06-03 09:20] VITALS: BP 120/87; PULSE 71; RESP 18; TEMP 36.4; O2SAT 97
== END 2023-06-03 09:28 | disposition home or self-care (01) ==
PROVIDERS: PCP Internal Medicine; Visit Provider Ophthalmology
PROC: (CPT 66984; principal; 2023-06-03 09:30)
DX: H25.812 Combined forms of age-related cataract, left eye (principal); H53.8 Other visual disturbances
CPT/HCPCS: 66984; V2632

== ENCOUNTER 2023-06-17 12:03 | Outpatient (CLI) | payer MEDICARE, SELFPAY ==
[2023-06-17 12:19] LABS: Basophils # 0.1 K/mm3 (0-0.2); Basophils % 0.9 % (0.1-2.0); Eosinophils # 0.2 K/mm3 (0.0-0.4); Eosinophils % 2.4 % (0.1-12.0); Hematocrit 43.7 % (37.0-47.0); Hemoglobin 13.8 g/dL (12.2-16.2); Lymphocytes # 1.6 K/mm3 (0.7-4.5); Mean Corpuscular HGB Conc 31.5 g/dL (31.8-35.4); Mean Corpuscular Hemoglobin 30.4 pg (27.0-31.2); Mean Corpuscular Volume 96.5 fl (81-99); Mean Platelet Volume 8.5 fl (7.4-10.4); Monocytes # 0.5 K/mm3 (0.1-1.0); Monocytes % 7.4 % (1.7-9.3); Neutrophils # 4.1 K/mm3 (1.8-7.8); Neutrophils % 64.4 % (37.0-80.0); Platelet Count 289 K/mm3 (142-424); Red Blood Count 4.53 M/mm3 (4.20-5.40); Red Cell Distribution Width 13.3 % (11.5-17.5); White Blood Count 6.4 K/mm3 (4.8-10.8)
[2023-06-17 13:09] LABS: Chloride 103 mmol/L (98-107); Potassium 4.3 mmoL/L (3.5-5.1); Sodium 138 mmol/L (136-145)
[2023-06-17 13:12] LABS: Alanine Aminotransferase 33 U/L (12-78); Albumin Level 3.6 g/dl (3.5-5.0); Albumin/Globulin Ratio 1.5 (1.1-1.8); Alkaline Phosphatase 114 U/L (38-126); Anion Gap 5.3 mEq/L (5-15); Aspartate Amino Transferase 36 U/L (14-36); Bilirubin,Total 0.4 mg/dl (0.2-1.3); Blood Urea Nitrogen 25 mg/dl (7-17); Carbon Dioxide 34 mmol/L (22.0-30.0); Cholesterol 178 mg/dl (140-200); Estimated Glomerular Filt Rate 53 ml/min (>60); GFR (African American) 64 ML/MIN (>60); Globulin 2.4 g/dL (1.3-3.2); Triglycerides 207 mg/dl (30-150); VLDL Cholesterol 41 mg/dL (0-40)
[2023-06-17 13:13] LABS: Chol/HDL Ratio 4.8 (1-3.5); Glucose 89 mg/dl (74-100); HDL Cholesterol 37 mg/dl (40-60)
[2023-06-17 13:21] LABS: NT Pro Brain Natriuretic Pep. 151 pg/mL (0-450)
[2023-06-17 13:24] LABS: Direct LDL Cholesterol 89.77 mg/dL (100-129)
[2023-06-22 10:26] LABS: Thyroid Stimulating Hormone 2.33 uIU/mL (0.465-4.68)
== END 2023-06-17 23:59 ==
LOC: LAB.DROPOF 12:04
PROVIDERS: PCP Internal Medicine; Visit Provider Internal Medicine
DX: I10 Essential (primary) hypertension (principal); R06.09 Other forms of dyspnea; E78.5 Hyperlipidemia, unspecified; I49.40 Unspecified premature depolarization; M15.0 Primary generalized (osteo)arthritis; K80.20 Calculus of gallbladder without cholecystitis without obstruction; R60.9 Edema, unspecified; Z85.41 Personal history of malignant neoplasm of cervix uteri
CPT/HCPCS: 80053; 80061; 83880; 84443; 85025

== ENCOUNTER 2023-06-27 12:31 | Outpatient (CLI) | payer MEDICARE, SELFPAY ==
--- NOTE | 2023-06-27 | CA_ITS ---
APPROVED REPORT EXAM: Comprehensive 2D, Doppler, and color-flow Echocardiogram Bird Keeper: Luz Thomas RT(R) Ht: 5 ft 3 in Wt: 186lbs BSA: 1.88 BP: 136/80 mmHg Indications: SOB, HTN, BRODY, edema 2D Dimensions LA Volume 30.80 mL LA Volume Index 16.38 mL/m2 (M/F) 16-34 EF AP4 78.40 % GL Strain -22.7 % M-Mode Dimensions RVDd 2.80 cm (0.9-2.6) LA Diam 3.20 cm (1.9-4.0) LVDd 5.06 cm (3.5-5.7) LVDs 3.70 cm (3.5-5.7) IVSd 0.76 cm (0.6-1.1) PWd 0.89 cm (0.6-1.1) EF (Teich) 52.20% FS 26.90% EDV (Teich) 121.60 mL ESV (Teich) 58.10 mL LV Diastology E Decel Time 263 (160-240 msec) E/A Ratio 0.7 Mitral Valve MV E Max True. 67.0 (40-130 cm/s) MV A Velocity 102.0 (40-130 cm/s) E/A Ratio 0.66 MV PHT 77.0 ms Left Ventricle The left ventricle is normal size. The left ventricular systolic function is normal. The left ventricular ejection fraction is within the normal range. There is increased LV wall thickness. There is normal LV segmental wall motion. Transmitral Doppler flow pattern suggests impaired LV relaxation. LVEF is 55%. Right Ventricle The right ventricle is normal size. The right ventricular systolic function is normal. Atria The left atrium size is normal. The right atrium size is normal. There is no Doppler evidence of interatrial shunt. Aortic Valve The aortic valve is mildly thickened. Trace aortic regurgitation. There is no aortic valvular stenosis. Mitral Valve The mitral valve leaflets are mildly thickened. Trace mitral regurgitation. No evidence of mitral valve stenosis. Tricuspid Valve The tricuspid valve leaflets are thin and pliable. Trace tricuspid regurgitation. There is insufficient TR jet to estimate RVSP. Pulmonic Valve The pulmonary valve is normal in structure. Trace pulmonic regurgitation. Great Vessels The aortic root is normal in size. The ascending aorta is normal in size. IVC is normal in size and collapses >50% with inspiration. Pericardium There is no pericardial effusion. Other Information Study Quality: Fair Conclusion Normal biventricular systolic function. No significant valvular stenosis or regurgitation. Electronically signed by : Inés Banegas MD 07/02/2023 00:00:54
== END 2023-06-27 23:59 ==
PROVIDERS: PCP Internal Medicine; Visit Provider Internal Medicine
DX: R06.09 Other forms of dyspnea (principal); R60.0 Localized edema
CPT/HCPCS: 93306

== ENCOUNTER 2023-08-06 11:41 | Outpatient (CLI) | payer MEDICARE, SELFPAY | END 2023-08-06 23:59 | disposition home or self-care (01) | LOC: RT 11:44 | PROVIDERS: PCP Internal Medicine; Visit Provider Internal Medicine | DX: R06.00 Dyspnea, unspecified (principal); R07.9 Chest pain, unspecified; R00.2 Palpitations; R60.9 Edema, unspecified | CPT/HCPCS: 93225; 93227 ==

== ENCOUNTER 2023-08-08 11:40 | Outpatient (CLI) | payer MEDICARE, SELFPAY | END 2023-08-08 23:59 | disposition home or self-care (01) | LOC: RT 11:41 | PROVIDERS: PCP Internal Medicine; Visit Provider Internal Medicine | DX: R06.00 Dyspnea, unspecified (principal); R07.9 Chest pain, unspecified; R60.9 Edema, unspecified; R00.2 Palpitations | CPT/HCPCS: 93270 ==

== ENCOUNTER 2023-08-13 07:44 | Outpatient (CLI) | payer MEDICARE, SELFPAY ==
--- NOTE | 2023-08-13 | CA_ITS ---
APPROVED REPORT Exam: Exercise Treadmill Technologist: Reena Crawford, Ht: 5 ft 3 in Wt: 200 lbs BSA: 1.93 m2 HR: 84 bpm BP: 142/87 mmHg Rhythm: NSR, non specific ST-T abns in anterolateral leads Medical History Medications: Losartan,,,,, Aleve,,,,, Reglan,,,,, Cardiac Risk Factors: HTN, Hyperlipidemia, , Smoking Stress Test Details Test: LEXISCAN HR Resting HR: 64 bpm Max Heart Rate (APMHR): 136 bpm Max HR Achieved: 98 bpm Target HR (85% APMHR): 116 bpm % of APMHR: 72 Recovery HR: 123 bpm BP Resting BP: 164.0/92.0 mmHg Max BP: 164.0/92.0 mmHg Recovery BP: 159.0/68.0 mmHg ECG Resting ECG: NSR, non specific ST-T abns in anterolateral leads Stress ECG: No significant ST changes Arrhythmia: Occasional PVCs Clinical Exercise duration: 04:00 min Highest Stage Achieved: Exercise capacity: 1.0 METs Stress ECG Conclusion No symptoms following Lexiscan administration. Ectopy: Occasional PVCs ST changes: None Conclusion: Unremarkable Lexiscan stress test. Myoview images are reported separately. Test Summary REST . . . . . . . Sitting REST 03:33 . . 64 . 164/ 92 . . Stage 1 01:00 . . 86 . . . . Stage 2 01:00 . . 93 . 158/ 79 . . Stage 3 01:00 . . 86 . 140/ 81 . . Stage 4 01:00 . . 86 . 137/ 81 . Stop exercise at 04:00 RECOVERY 01:00 . . 82 . . . . RECOVERY 02:00 . . 83 . 149/ 88 . . RECOVERY 03:00 . . 82 . 133/ 94 . . RECOVERY 03:18 . . 83 . 133/ 94 . . Electronically signed by : Inés Banegas MD 08/16/2023 01:46:54
--- NOTE | 2023-08-13 07:44 | NM_ITS ---
APPROVED REPORT Exam: Nuclear Stress Test Indication: HTN, C.P., SOB, FATIGUE, EDEMA Patient Location: Outpatient Stress Tech: Reena FRANKLIN Tech:KUN Morales RT (R)(N)(M) Ht: 5 ft 3 in Wt: 190 lbs Bra Size: C HR: 64 bpm BP: 164/92 mmHg BSA: 1.89 m2 TID: 1.26 BMI: 33.6 History: HTN, C.P., SOB, FATIGUE, EDEMA Procedure: Patient received 0.4 mg of intravenous Lexiscan, resting heart rate 64 bpm, resting blood pressure 164/92 mmHg, with Lexiscan maximum heart rate achieved was 98 bpm which is % of the maximum predicted heart rate and blood pressure was 158/79 mmHg. With Lexiscan, patient denied any complaint of chest pain. Cardiac Stress and Resting SPECT Images: Cardiac Stress and Resting SPECT images were obtained using technetium 99m Myoview 31.2 mCi stress and 10.64 mCi at rest. Raw images demonstrate significant soft tissue overlap with the cardiac borders. This may affect the diagnostic interpretation of the study findings. Resting and stress imaging in supine and prone positions demonstrate a medium sized, moderate, fixed perfusion defect in the basal to mid anterior LV wall. There is also increased transient ischemic dilatation ratio (TID 1.26), suggestive of possible multivessel disease or balanced ischemia. Gated imaging demonstrates normal global and regional LV systolic function. LVEF is calculated at 67%. Conclusion: Technically difficult study due to significant soft tissue overlap with LV borders. medium sized, moderate, fixed perfusion defect in the basal to mid anterior LV wall. This may represent soft tissue attenuation, but true perfusion defect cannot be entirely ruled out. There is also increased transient ischemic dilatation ratio (TID 1.26), suggestive of possible multivessel disease or balanced ischemia. Gated imaging demonstrates normal global and regional LV systolic function. LVEF is calculated at 67%. In the setting of technically difficult study and possible soft tissue attenuation, further evaluation with alternative noninvasive modalities (i.e. CCTA) is suggested first to rule out multivessel disease prior to proceeding with invasive coronary angiography. Electronically signed by : Inés Banegas MD 08/16/2023 01:50:13
[2023-08-13] MEDS: SODIUM CHLORIDE 0.9% 10ML SYR (RAD ONLY) 10 ML IV ×2 (07:55→08:45)
[2023-08-13] MEDS: REGADENOSON 0.4MG/5ML SYRINGE 0.400000000000000022 MG IV (08:45)
[2023-08-13] MEDS: ISOTOPE MYOVIEW (PER STUDY) 1 DOSE IV (09:59)
== END 2023-08-13 23:59 | disposition home or self-care (01) ==
LOC: RAD 07:44
PROVIDERS: PCP Internal Medicine; Visit Provider Internal Medicine
DX: R07.9 Chest pain, unspecified (principal); R06.00 Dyspnea, unspecified; R60.9 Edema, unspecified; R00.2 Palpitations
CPT/HCPCS: 78452; 93017; 93018; A9502; J2785

== ENCOUNTER 2023-09-09 08:25 | Outpatient (CLI) | payer MEDICARE, SELFPAY ==
--- NOTE | 2023-09-09 08:25 | CT_ITS ---
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 A noncontrast coronary calcium scan was performed. A CT attenuation threshold of 130 Hounsfield units (HU) was used for the detection of calcium in contiguous voxels of 1 sq mm in area to be counted as individual lesions. Bolus tracking in the ascending aorta with a threshold of 180 HU was performed. Immediately afterwards, ECG synchronized cardiac CT was then performed from the cardiac base to apex using retrospective gating with ECG tube current modulation. A total of 85 mL of Isovue 370 mg/mL contrast medium was administered at 5 mL/sec followed by a saline flush using a biphasic injection protocol. A tube voltage of 120 KVp was used. The patient received the following medications prior to the cardiac CT. 0.8 mg of sublingual nitroglycerin The average heart rate at the time of acquisition was 48 bpm and regular. Image Reconstruction Transaxial images were reconstructed at 0.67 mm slide thickness. Data was reviewed interactively on an advanced workstation capable of 2 and 3-dimensional displays in all conventional reconstruction formats, including multiplanar reformations, maximum intensity projections, curved multiplanar reformations, and volume rendered reconstructions. When applicable, selected routine images describing the relevant coronary anatomy and pathology were saved and sent to PACS. Complications None Technical Quality Overall image quality was good. Coronary artery opacification was adequate. Total DLP (Dose-Length Product) is 1437.0 mGy-cm. The reported value represents the total of one or more individual components during the CT acquisition of this date and at this time, and as such, the same value may appear in more than one CT report depending on the interpreting/reporting physicians. COMPARISON None FINDINGS CT Coronary Calcium Scoring LMA (Left Main Artery) = 0 LAD (Left Anterior Descending) = 71 LCX (Left Coronary Circumflex) = 0 RCA (Right Coronary Artery) = 6 Total Calcium Score = 77 using the AJ-130 method. The observed calcium score of 77 is at 34th percentile for subjects of the same age, sex, and race/ethnicity. The interpretation of the calcium heart score is based on the following continuum*: 0 = no calcified plaque detected (risk of coronary artery disease is very low ??? less than 5%) 1-10 = calcium detected in extremely minimal levels (risk of coronary diseases is still low ??? less than 10%) 11-100 = mild levels of plaque detected with certainty (mild or minimal narrowing of heart arteries is likely) 101-400 = definite,at least moderate levels of plaque detected (relatively high risk of a heart attack within 3-5 years) >401-999 = extensive levels of plaque detected (high risk of heart attack, high levels of vascular disease are present, high likelihood of at least one significant coronary narrowing) *The calcium heart score quantifies the burden of coronary calcification/plaque in the coronary arteries. The calcium heart score is not able to evaluate the presence or burden of non-calcified (i.e. soft) plaque. There is also identifiable calcification in the transverse and descending thoracic aorta. Coronary CT Angiography The coronary arterial system is right dominant. Quantitative Stenosis Grading: Left Main (LM): The left main originates normally from the left sinus of Valsalva. The LM bifurcates into the left anterior descending artery and left circumflex artery. The LM is patent with no evidence of atherosclerosis. Left Anterior Descending (LAD) and Diagonal Branches: The LAD gives off 3 diagonal branch(es). There is mixed calcified/noncalcified plaque in the proximal LAD segment with up to 50 to 70% luminal stenosis. There is no evidence of LAD-myocardial bridge. Left Circumflex (LCX) and Obtuse Marginals (OM): The LCX gives off 1 Obtuse Marginal (OM) branch(es). The LCX and its branches are patent with no evidence of atherosclerosis. Right Coronary Artery (RCA): The RCA originates normally from the right sinus of Valsalva. The RCA gives off a posterior descending artery (PDA) and posterolateral (PL) branches. There is a focal, concentric noncalcified plaque in the proximal RCA segment, with up to 50-70% luminal stenosis. Non-Coronary Cardiac Findings: Analysis of the left ventricular (LV) structure and function was performed after 3-D reconstruction of the LV from axial images, with user-corrected automatic contouring for assessment of LV volumes and user-defined reconstruction from oblique planes for measurement of 3-D cardiac structure and function. -The left ventricle systolic function is normal. -There is no left atrial appendage filling defect. Two right pulmonary veins and two left pulmonary veins drain normally into the left atrium. -No pericardial thickening or calcification. -Central and branch pulmonary arteries in the [id number] are unremarkable. -Thoracic aorta within the visualized thoracic aortic-branches in the [id number] is unremarkable. Extracardiac Structures No significant extra-cardiac findings. Note, however, that this study is focused on the cardiac findings. IMPRESSION -Presence of coronary calcification with an Agatston score = 77 using the AJ-130 method. -The observed calcium score of 77 is at 34th percentile for subjects of the same age, sex, and race/ethnicity. -Moderate multivessel atherosclerotic coronary disease with presence of significant (and possibly flow-limiting) calcified/noncalcified plaque in the proximal LAD segment and concentric noncalcified plaque in the proximal RCA segment. -CAD-RADS 3. In the setting of transient ischemic dilatation (TID) on nuclear stress testing and presence of multivessel disease on CCTA, further evaluation with invasive coronary angiography is recommended, if clinically indicated and feasible. *Recommendations: CAD RADS 0: Reassurance. Consider non-atherosclerotic causes of chest pain. CAD RADS 1: Consider non-atherosclerotic causes of chest pain. Consider preventive therapy and risk factor modification. CAD RADS 2: Consider non-atherosclerotic causes of chest pain. Consider preventive therapy and risk factor modification, particularly for patients with nonobstructive plaque in multiple segments. CAD RADS 3: Consider further functional testing. Consider symptom-guided anti-ischemic and preventive pharmacotherapy as well as risk factor modification per published guideline statements. CAD RADS 4A: Consider further functional testing or invasive coronary angiography with revascularization per published guideline statements. Consider symptom-guided anti-ischemic and preventive pharmacotherapy as well as risk factor modification per published guideline statements. CAD RADS 4B: Invasive coronary angiography recommended with revascularization per published guideline statements. Consider symptom-guided anti-ischemic and preventive pharmacotherapy as well as risk factor modification per published guideline statements. CAD RADS 5: Consider invasive angiography and/or viability assessment with revascularization per published guideline statements. Consider symptom-guided anti-ischemic and preventive pharmacotherapy as well as risk factor modification per published guideline statements. CRITICAL RESULT None COMMUNICATION Per this written report The coronary and cardiac findings of this CCTA were reviewed, reported, and signed by Daniel Banegas MD (Principal Android Developer) Conclusion Electronically signed by : Inés Banegas MD 09/09/2023 12:24:40
[2023-09-09 08:48] VITALS: BMI 36.0
[2023-09-09 08:51] VITALS: BP 173/86; PULSE 57; RESP 16; O2SAT 97
[2023-09-09] MEDS: NITROGLYCERIN 0.4MG SL TABLET SL (09:04)
[2023-09-09 09:39] LABS: Chloride 109 mmol/L (98-107); Potassium 4.1 mmoL/L (3.5-5.1); Sodium 140 mmol/L (136-145)
[2023-09-09 09:42] LABS: Anion Gap 4.1 mEq/L (5-15); Blood Urea Nitrogen 14 mg/dl (7-17); Carbon Dioxide 31 mmol/L (22.0-30.0); Creatinine Clearance Estimated 54 mL/min (50-200); Estimated Glomerular Filt Rate 47 ml/min (>60); GFR (African American) 57 ML/MIN (>60); Glucose 104 mg/dl (74-100)
[2023-09-09 09:55] VITALS: BP 156/96; PULSE 63; RESP 16; O2SAT 96
[2023-09-09 09:58] VITALS: BP 126/74; PULSE 53; RESP 16; O2SAT 98
[2023-09-09 10:01] VITALS: BP 102/60; PULSE 58; RESP 16; O2SAT 98
[2023-09-09] MEDS: IOPAMIDOL-370 (76%);100ML BOTTLE 85 ML IV (10:08)
[2023-09-09] MEDS: 0.9 % SODIUM CHLORIDE 50 ML VIAL 40 ML IV (10:08)
[2023-09-09] MEDS: SODIUM CHLORIDE 0.9% 10ML SYR (RAD ONLY) 10 ML IV (10:08)
[2023-09-09 10:14] VITALS: BP 136/86; PULSE 72; RESP 16; O2SAT 98
== END 2023-09-09 23:59 | disposition home or self-care (01) ==
PROVIDERS: PCP Internal Medicine; Visit Provider Internal Medicine
DX: R93.1 Abnormal findings on diagnostic imaging of heart and coronary circulation (principal); R06.00 Dyspnea, unspecified; R07.9 Chest pain, unspecified; R00.2 Palpitations; R60.9 Edema, unspecified
CPT/HCPCS: 75574; 80048; Q9967

== ENCOUNTER 2023-12-17 09:36 | Outpatient (CLI) | payer MEDICARE, SELFPAY ==
[2023-12-17 16:57] LABS: Basophils # 0.1 K/mm3 (0-0.2); Basophils % 0.7 % (0.1-2.0); Eosinophils # 0.2 K/mm3 (0.0-0.4); Eosinophils % 2.2 % (0.1-12.0); Hematocrit 46.8 % (37.0-47.0); Hemoglobin 15.2 g/dL (12.2-16.2); Lymphocytes # 1.2 K/mm3 (0.7-4.5); Lymphocytes % 17.1 % (10-50); Mean Corpuscular HGB Conc 32.5 g/dL (31.8-35.4); Mean Corpuscular Hemoglobin 30.2 pg (27.0-31.2); Mean Corpuscular Volume 93.1 fl (81-99); Mean Platelet Volume 8.5 fl (7.4-10.4); Monocytes # 0.6 K/mm3 (0.1-1.0); Monocytes % 8.2 % (1.7-9.3); Neutrophils # 5.1 K/mm3 (1.8-7.8); Neutrophils % 71.9 % (37.0-80.0); Platelet Count 261 K/mm3 (142-424); Red Blood Count 5.03 M/mm3 (4.20-5.40); Red Cell Distribution Width 13.7 % (11.5-17.5); White Blood Count 7.1 K/mm3 (4.8-10.8)
[2023-12-17 17:44] LABS: Alanine Aminotransferase 23 U/L (12-78); Albumin Level 4.2 g/dl (3.5-5.0); Albumin/Globulin Ratio 1.6 (1.1-1.8); Alkaline Phosphatase 87 U/L (38-126); Anion Gap 5.6 mEq/L (5-15); Aspartate Amino Transferase 31 U/L (14-36); Bilirubin,Total 0.6 mg/dl (0.2-1.3); Blood Urea Nitrogen 20 mg/dl (7-17); Calcium 9.3 mg/dl (8.4-10.2); Carbon Dioxide 30 mmol/L (22.0-30.0); Chloride 101 mmol/L (98-107); Chol/HDL Ratio 3.5 (1-3.5); Cholesterol 181 mg/dl (140-200); Estimated Glomerular Filt Rate 53 ml/min (>60); GFR (African American) 64 ML/MIN (>60); Globulin 2.7 g/dL (1.3-3.2); Glucose 86 mg/dl (74-100); HDL Cholesterol 51 mg/dl (40-60); Potassium 4.6 mmoL/L (3.5-5.1); Sodium 132 mmol/L (136-145); Total Protein,Serum 6.9 g/dl (6.3-8.2); Triglycerides 175 mg/dl (30-150); VLDL Cholesterol 35 mg/dL (0-40)
[2023-12-17 17:54] LABS: Direct LDL Cholesterol 88.84 mg/dL (100-129)
== END 2023-12-17 23:59 | disposition home or self-care (01) ==
LOC: LAB.DROPOF 12-18 09:36
PROVIDERS: PCP Internal Medicine; Visit Provider Internal Medicine
DX: I10 Essential (primary) hypertension (principal); E78.5 Hyperlipidemia, unspecified; I25.10 Atherosclerotic heart disease of native coronary artery without angina pectoris; R93.1 Abnormal findings on diagnostic imaging of heart and coronary circulation; R00.2 Palpitations; M15.0 Primary generalized (osteo)arthritis; Z85.41 Personal history of malignant neoplasm of cervix uteri; K80.20 Calculus of gallbladder without cholecystitis without obstruction
CPT/HCPCS: 80053; 80061; 85025

== ENCOUNTER 2024-03-29 18:31 | Emergency (ER) | payer MEDICARE, SELFPAY ==
[2024-03-29 18:51] VITALS: BP 122/77; PULSE 91; RESP 18; TEMP 37.2; O2SAT 93; BMI 36.2
--- NOTE | 2024-03-29 18:57 | EXP.UTC ---
Discharge Plan Disposition Patient Disposition: Still a Patient Condition: Fair Prescriptions Prescriptions: No Action aspirin [Adult Aspirin Regimen] 81 mg tablet,delayed release (DR/EC) 81 mg PO DAILY Qty: 30 2RF naproxen sodium [Aleve] 220 mg capsule 220 mg PO BID PRN (Reason: Pain) omeprazole 40 mg capsule,delayed release(DR/EC) 40 mg PO DAILY Qty: 90 1RF losartan-hydrochlorothiazide 50-12.5 mg tablet 1 tab PO DAILY Qty: 90 3RF lorazepam 0.5 mg tablet 0.5 mg PO TID PRN (Reason: anxiety) Qty: 90 1RF metoprolol succinate 50 mg tablet extended release 24 hr 50 mg PO DAILY Qty: 90 1RF Referrals Follow up/Referrals: Bridger Tena MD [Primary Care Provider] - See instructions Clinical Impressions Clinical Impression: Abdominal pain Print Language Print Language: Yoruba Discharge ED Provider: Anuel Thurman [facility] [place] HPI General Stated complaint: abd pain, back pain Mode of Arrival: Ambulatory Source of Information: Patient Time Seen by Provider: 03/29/24 18:51 Description of Symptoms (Recalled from Triage Doc. by RN): BACK PAIN, ABD PAIN HEENT Symptoms (Recalled from RN notes): No Resp Symptoms (Recalled from RN notes): No Skin Symptoms (Recalled from RN notes): No MS Symptoms (Recalled from RN notes): Yes Functional Status (Recalled from RN notes): WNL History of Present Illness Provider Complaint: She states that since early this morning she has had abdominal pain and back pain. She has also had n/v. She last vomited around 2 hours ago. She has had chilling, but no documented fever. Related Data Home Medications ?Medication ?Instructions ?Recorded ?Confirmed naproxen sodium 220 mg capsule 220 mg PO BID PRN Pain 07/21/23 12/17/23 (Aleve) Previous Rx's ?Medication ?Instructions ?Recorded losartan 50 mg-hydrochlorothiazide 1 tab PO DAILY #90 tabs 12/01/23 12.5 mg tablet omeprazole 40 mg capsule,delayed 40 mg PO DAILY #90 caps 12/01/23 release aspirin 81 mg tablet,delayed 81 mg PO DAILY #30 tabs 12/16/23 release (Adult Aspirin Regimen) lorazepam 0.5 mg tablet 0.5 mg PO TID PRN anxiety #90 tabs 02/24/24 metoprolol succinate 50 mg 50 mg PO DAILY #90 tabs 03/08/24 tablet,extended release 24 hr Allergies Allergy/AdvReac Type Severity Reaction Status Date / Time No Known Allergies Allergy Verified 12/17/23 09:03 Worker's Comp Is this a Worker's Comp case?: No [facility] Disclaimer: The information contained in this section may have been updated after the patient was seen, as this information can be updated by other users. Medical History Abnormal nuclear cardiac imaging test Palpitations Edema Dyspnea Chest pain Cataract Hypertension Surgical History History of esophagogastroduodenoscopy (EGD) Family History Other Family history of cancer Social History Smoking Status: Never smoker alcohol intake: never substance use type: denies use current occupational status: retired Travel in the last 8 weeks: None caffeine: Yes Have you lived/traveled outside [place] in past 30 days?: No Contact w/someone who lives/traveled outside US past 30 days?: No Exposure to someone with infectious disease in past 14 days?: No Do you have a fever (greater than 100.4 F or 38 C)?: No Have you tested positive for COVID-19: No Exposed to someone with COVID-19 in past 14 days?: No Do you have a sore throat?: No Do you have a cough?: No Do you have any weakness?: No Do you have any diarrhea?: Yes Are you experiencing any unusual bleeding?: No Do you have any muscle aches/pain?: Yes Do you have any abdominal pain?: Yes Are you experiencing loss of taste or smell?: No ROS Obtained: Yes All systems reviewed & no additional complaints except as documented Constitutional Constitutional: Denies chills, Denies fever(s) and Reports poor appetite ENT Ears, Nose, Mouth, and Throat: Denies dizziness and Denies sore throat Cardiovascular Cardiovascular: Denies dyspnea Respiratory Respiratory: Denies chest congestion, Denies cough and Denies dyspnea Gastrointestinal Gastrointestingal: Reports as per HPI and abdominal pain Genitourinary Female Genitourinary: Denies difficulty voiding, Denies dysuria, Denies hematuria, Denies urinary frequency, Denies urinary incontinence, Denies urinary hesitancy and Denies urinary urgency Musculoskeletal Musculoskeletal: Denies arthralgias Integumentary/Breasts Skin/Breast: Denies rash Neurologic Neurologic: Denies dizziness Physical Exam General General appearance: alert and in no apparent distress Head Head exam: atraumatic and normocephalic Eye Eye exam: Present normal appearance, PERRL and EOMI ENT ENT exam: Present normal exam, normal oropharynx, mucous membranes moist, TM's normal bilaterally and normal external ear exam Neck Neck exam: Present normal inspection, full ROM and trachea midline; Absent tenderness, meningismus or lymphadenopathy Chest Chest inspection: Present normal inspection and symmetric chest wall rise; Absent tenderness, rash or abscess Respiratory Respiratory exam: Present normal lung sounds bilaterally; Absent respiratory distress, wheezes or stridor Cardiovascular Cardiovascular exam: Present regular rate and normal rhythm; Absent irregular rhythm, systolic murmur, diastolic murmur or JVD Abdominal Exam Abdominal exam: Present soft, tenderness, guarding and hyperactive bowel sounds; Absent distention, rebound or rigidity Extremities Exam Extremities exam: Present normal inspection and full ROM; Absent tenderness Back Exam Back exam: Present normal inspection and full ROM; Absent tenderness, CVA tenderness (R) or CVA tenderness (L) Neurological Exam Neurological exam: Present alert, oriented X3 and CN II-XII intact Psychiatric Psychiatric exam: Present normal affect and normal mood Skin Skin exam: Present warm, dry, intact and normal color Lymphatic Lymphatic Findings: no adenopathy Medical Decision Making Medical Records Medical records reviewed: No I reviewed the patient's medical records. Screening: Per USPSTF and CDC recommendations, given the prevalence of disease in our region, it is our hospital?s policy to screen for HIV and viral Hepatitis for all patients aged 18 and over and those with ongoing risk factors. Madan Inquiry Pt receiving controlled substance: No Vital Signs: 03/29/24 18:51 Temperature 98.9 F Temperature Source Oral Pulse Rate [Left Radial] 91 H Respiratory Rate 18 Blood Pressure [Left Arm] 122/77 Blood Pressure Mean [Left Arm] 92 02 Sat by Pulse Oximetry 93 L Lab Data Lab results reviewed: Yes I reviewed the patient's lab results. Medical Decision Narrative: She was transferred to the er due to her abdominal pain with no clear etiology.
[2024-03-29 18:59] LABS: Apearance,Urine Clear (Clear); Color,Urine Yellow (Yellow); PH,Urine 5.5 (5.0-8.5); Specific Gravity, Urine 1.025 (1.005-1.030)
[2024-03-29 19:00] LABS: Bilirubin,Urine Negative (Negative); Blood, Urine Trace (Negative); Glucose,Urine (UA) Negative (Negative); Ketones,Urine TRACE (Negative); Protein,Urine Trace (Negative); UTC Leukocyte Esterase,Urine Trace (Negative); UTC Nitrate,Urine Negative (Negative); Urobilinogen,Urine 0.2 EU/dl (0.2)
[2024-03-29 19:41] LABS: UTC Influenza A Antigen Negative (Negative); UTC Influenza B Antigen Negative (Negative)
[2024-03-29 19:49] VITALS: BP 139/107; PULSE 81; RESP 20; TEMP 37.2; O2SAT 97; BMI 36.0
--- NOTE | 2024-03-29 19:53 | HMH.EDGENADL ---
Discharge Plan Disposition Patient Disposition: Still a Patient Condition: Fair Prescriptions Prescriptions: No Action aspirin [Adult Aspirin Regimen] 81 mg tablet,delayed release (DR/EC) 81 mg PO DAILY Qty: 30 2RF naproxen sodium [Aleve] 220 mg capsule 220 mg PO BID PRN (Reason: Pain) omeprazole 40 mg capsule,delayed release(DR/EC) 40 mg PO DAILY Qty: 90 1RF losartan-hydrochlorothiazide 50-12.5 mg tablet 1 tab PO DAILY Qty: 90 3RF lorazepam 0.5 mg tablet 0.5 mg PO TID PRN (Reason: anxiety) Qty: 90 1RF metoprolol succinate 50 mg tablet extended release 24 hr 50 mg PO DAILY Qty: 90 1RF Referrals Follow up/Referrals: Bridger Tena MD [Primary Care Provider] - See instructions Clinical Impressions Clinical Impression: Abdominal pain, Diarrhea, Acute hyponatremia, Hypomagnesemia Instructions Patient Instructions: DI for Acute Abdominal Pain Print Language Print Language: Bermudian Discharge ED Provider: Kunal Wood General Adult HPI <MADY Escobar - Last Filed: 03/29/24 21:46> General Chief complaint: Abdominal Pain Stated complaint: abd pain, back pain Time Seen by Provider: 03/29/24 18:51 Mode of Arrival: Wheelchair Source of Information: Patient and EMS Limitations: No Limitations Description of Symptoms (Recalled from ER Triage Doc. by RN): pt reports shes had nausea, vomitting, and diarrhea since 9am today. pt reports she does have abdominal pain as well. pt denies any other sick contacts other than her son who comes a visits History of Present Illness HPI narrative: Patient presents for evaluation of nausea vomiting diarrhea and abdominal pain. Patient states that she abruptly started having nausea vomiting and diarrhea around 9 AM this morning she has since developed abdominal pain that is diffuse in nature does not radiate. She denies any fever chills hemoptysis hematochezia melena hematemesis hematuria. Related Data Home Medications ?Medication ?Instructions ?Recorded ?Confirmed naproxen sodium 220 mg capsule 220 mg PO BID PRN Pain 07/21/23 12/17/23 (Aleve) Previous Rx's ?Medication ?Instructions ?Recorded losartan 50 mg-hydrochlorothiazide 1 tab PO DAILY #90 tabs 12/01/23 12.5 mg tablet omeprazole 40 mg capsule,delayed 40 mg PO DAILY #90 caps 12/01/23 release aspirin 81 mg tablet,delayed 81 mg PO DAILY #30 tabs 12/16/23 release (Adult Aspirin Regimen) lorazepam 0.5 mg tablet 0.5 mg PO TID PRN anxiety #90 tabs 02/24/24 metoprolol succinate 50 mg 50 mg PO DAILY #90 tabs 03/08/24 tablet,extended release 24 hr Allergies Allergy/AdvReac Type Severity Reaction Status Date / Time No Known Allergies Allergy Verified 12/17/23 09:03 [facility] <MADY Escobar - Last Filed: 03/29/24 21:46> [facility] Disclaimer: The information contained in this section may have been updated after the patient was seen, as this information can be updated by other users. Medical History Abnormal nuclear cardiac imaging test Palpitations Edema Dyspnea Chest pain Cataract Hypertension Surgical History History of esophagogastroduodenoscopy (EGD) Family History Other Family history of cancer Social History Smoking Status: Never smoker alcohol intake: never substance use type: denies use current occupational status: retired Travel in the last 8 weeks: None caffeine: Yes Have you lived/traveled outside US in past 30 days?: No Contact w/someone who lives/traveled outside US past 30 days?: No Exposure to someone with infectious disease in past 14 days?: No Do you have a fever (greater than 100.4 F or 38 C)?: No Have you tested positive for COVID-19: No Exposed to someone with COVID-19 in past 14 days?: No Do you have a sore throat?: No Do you have a cough?: No Do you have any weakness?: No Do you have any diarrhea?: Yes Are you experiencing any unusual bleeding?: No Do you have any muscle aches/pain?: Yes Do you have any abdominal pain?: Yes Are you experiencing loss of taste or smell?: No Other Medical History Have you received the Flu Vaccine for this season: No Have you received the Pneumonia Vaccine: Yes <MADY Escobar - Last Filed: 03/29/24 21:46> ROS Obtained: Yes Systems reviewed as appropriate & no additional complaints except as documented Physical Exam <MADY Escobar - Last Filed: 03/29/24 21:46> General General appearance: alert and in no apparent distress Respiratory Respiratory exam: Present normal lung sounds bilaterally Cardiovascular Cardiovascular exam: Present regular rate Neurological Exam Neurological exam: Present alert and oriented X3 Medical Decision Making <MADY Escobar - Last Filed: 03/29/24 21:46> Medical Records Medical records reviewed: Yes I reviewed the patient's medical records. Screening: Per USPSTF and CDC recommendations, given the prevalence of disease in our region, it is our hospital?s policy to screen for HIV and viral Hepatitis for all patients aged 18 and over and those with ongoing risk factors. Madan Inquiry Pt receiving controlled substance: No Vital Signs: 03/29/24 18:51 03/29/24 19:49 Temperature 98.9 F 98.9 F Temperature Source Oral Oral Pulse Rate [Left Radial] 91 H 81 Respiratory Rate 18 20 Blood Pressure [Left Arm] 122/77 139/107 H Blood Pressure Mean [Left Arm] 92 117 02 Sat by Pulse Oximetry 93 L 97 Lab Data Lab results reviewed: Yes I reviewed the patient's lab results. Lab Results 03/29/24 18:54: Urine Color Yellow, Urine Appearance Clear, Urine pH 5.5, Ur Specific Elliott 1.025, Urine Protein Trace, Urine Glucose (UA) Negative, Urine Ketones Trace, Urine Blood Trace, Urine Nitrate Negative, Urine Bilirubin Negative, Urine Urobilinogen 0.2, Ur Leukocyte Esterase Trace 03/29/24 19:27: Influenza Type A Ag Negative, Influenza Type B Ag Negative 03/29/24 19:40: WBC 10.5, RBC 5.17, Hgb 15.7, Hct 45.9, MCV 88.8, MCH 30.4, MCHC 34.2, RDW 12.5, Plt Count 293, MPV 9.5, Neut % (Auto) 93.6 H, Lymph % (Auto) 3.2 L, [place] % (Auto) 2.6, Eos % (Auto) 0.0 L, Baso % (Auto) 0.2, Neut # (Auto) 9.9 H, Lymph # (Auto) 0.3 L, [place] # (Auto) 0.3, Eos # (Auto) 0.0, Baso # (Auto) 0.0, Total Counted 100, Neutrophils % (Manual) 94 H, Lymphocytes % (Manual) 3 L, Monocytes % (Manual) 3, Platelet Estimate Normal, Stomatocytes 1+, Sodium 130 L, Potassium 4.4, Chloride 100, Carbon Dioxide 23, Anion Gap 11.4, BUN 25 H, Creatinine 1.00, Estimated Creat Clear 58, Estimated GFR 53 L, Est GFR ( Amer) 64, Glucose 166 H, Calcium 9.1, Magnesium 1.4 L, Lipase 45 03/29/24 19:40 03/29/24 19:40 Orders (Tests/Meds): ED MEDICATIONS Discontinued Medications Generic Name Dose Route Start Last Admin Trade Name Freq PRN Reason Stop Dose Admin Lactated Ringer's 1,000 mls @ 999 mls/hr 03/29/24 20:53 03/29/24 20:58 Lactated Ringer's 1000 Ml Bag IV 03/29/24 21:53 999 mls/hr .Q1H1M ONE Administration Magnesium Sulfate 2 gm in 50 mls @ 50 mls/hr 03/29/24 21:25 03/29/24 21:54 Magnesium Sulfate 2gm/50ml Premix IV 03/29/24 22:24 50 mls/hr ONCE ONE Administration Iopamidol 75 ml 03/29/24 22:10 03/29/24 22:12 Iopamidol-370 (76%);100ml Bottle IV 03/29/24 22:11 75 ml ONCE ONE Administration Ketorolac Tromethamine 15 mg 03/29/24 20:53 03/29/24 20:59 Ketorolac 30mg/Ml Vial IV 03/29/24 20:54 15 mg ONCE ONE Administration Ondansetron HCl 4 mg 03/29/24 20:53 03/29/24 20:59 Ondansetron 4mg/2ml Vial IV 03/29/24 20:54 4 mg ONCE ONE Administration Sodium Chloride 10 ml 03/29/24 22:10 03/29/24 22:11 Sodium Chloride 0.9% 10ml Syr (Rad Only) IV 03/29/24 22:11 10 ml ONCE ONE Administration ORDERS Category Date Time Status CT abdomen pelvis w con Stat Cat Scan 03/29/24 21:32 Completed BMP [Basic Metabolic Panel] Stat Lab 03/29/24 19:40 Completed CBC w/Auto Diff [Complete Blood Count Auto Diff] Stat Lab 03/29/24 19:40 Completed Diarrhea 23 Panel, PCR Stat Lab 03/29/24 21:01 Received Lipase Stat Lab 03/29/24 19:40 Completed Magnesium Stat Lab 03/29/24 19:40 Completed Urine Culture Stat Micro 03/29/24 18:51 Received Medical Decision Narrative: In summary patient is a 83-year-old female who presents to the emergency department for evaluation of nausea vomiting diarrhea and abdominal pain. Patient is initially normotensive at 122/77 with a heart rate of 91 normal sinus rhythm on the bedside monitor breathing 18 times a minute satting at 93% on room air upon arrival, afebrile at 98.9. Physical exam reveals a well-nourished well-developed unwell appearing 83-year-old female does not appear to be in acute distress. Examination of chest reveals clear breath sounds examination abdomen reveals diffuse tenderness without rebound or guarding or rigidity hyperactive bowel sounds.. Differential diagnosis includes gastroenteritis versus diverticulitis versus appendicitis versus cholecystitis etc. Initial workup will be conducted with hematologic labs urinalysis diarrhea panel CT scan abdomen pelvis. Initial interventions include crystalloid bolus Zofran Toradol. Initial workup reviewed by me and although incompleted handoff at [address] Pelletier patient is low on her magnesium which I have started repletion. Remainder of her workup is pending <Kunal Wood MD - Last Filed: 03/29/24 23:04> Vital Signs: 03/29/24 18:51 03/29/24 19:49 Temperature 98.9 F 98.9 F Temperature Source Oral Oral Pulse Rate [Left Radial] 91 H 81 Respiratory Rate 18 20 Blood Pressure [Left Arm] 122/77 139/107 H Blood Pressure Mean [Left Arm] 92 117 02 Sat by Pulse Oximetry 93 L 97 Lab Data Lab Results 03/29/24 18:54: Urine Color Yellow, Urine Appearance Clear, Urine pH 5.5, Ur Specific Elliott 1.025, Urine Protein Trace, Urine Glucose (UA) Negative, Urine Ketones Trace, Urine Blood Trace, Urine Nitrate Negative, Urine Bilirubin Negative, Urine Urobilinogen 0.2, Ur Leukocyte Esterase Trace 03/29/24 19:27: Influenza Type A Ag Negative, Influenza Type B Ag Negative 03/29/24 19:40: WBC 10.5, RBC 5.17, Hgb 15.7, Hct 45.9, MCV 88.8, MCH 30.4, MCHC 34.2, RDW 12.5, Plt Count 293, MPV 9.5, Neut % (Auto) 93.6 H, Lymph % (Auto) 3.2 L, [place] % (Auto) 2.6, Eos % (Auto) 0.0 L, Baso % (Auto) 0.2, Neut # (Auto) 9.9 H, Lymph # (Auto) 0.3 L, [place] # (Auto) 0.3, Eos # (Auto) 0.0, Baso # (Auto) 0.0, Total Counted 100, Neutrophils % (Manual) 94 H, Lymphocytes % (Manual) 3 L, Monocytes % (Manual) 3, Platelet Estimate Normal, Stomatocytes 1+, Sodium 130 L, Potassium 4.4, Chloride 100, Carbon Dioxide 23, Anion Gap 11.4, BUN 25 H, Creatinine 1.00, Estimated Creat Clear 58, Estimated GFR 53 L, Est GFR ( Amer) 64, Glucose 166 H, Calcium 9.1, Magnesium 1.4 L, Lipase 45 Orders (Tests/Meds): ED MEDICATIONS Discontinued Medications Generic Name Dose Route Start Last Admin Trade Name Freq PRN Reason Stop Dose Admin Lactated Ringer's 1,000 mls @ 999 mls/hr 03/29/24 20:53 03/29/24 20:58 Lactated Ringer's 1000 Ml Bag IV 03/29/24 21:53 999 mls/hr .Q1H1M ONE Administration Magnesium Sulfate 2 gm in 50 mls @ 50 mls/hr 03/29/24 21:25 03/29/24 21:54 Magnesium Sulfate 2gm/50ml Premix IV 03/29/24 22:24 50 mls/hr ONCE ONE Administration Iopamidol 75 ml 03/29/24 22:10 03/29/24 22:12 Iopamidol-370 (76%);100ml Bottle IV 03/29/24 22:11 75 ml ONCE ONE Administration Ketorolac Tromethamine 15 mg 03/29/24 20:53 03/29/24 20:59 Ketorolac 30mg/Ml Vial IV 03/29/24 20:54 15 mg ONCE ONE Administration Ondansetron HCl 4 mg 03/29/24 20:53 03/29/24 20:59 Ondansetron 4mg/2ml Vial IV 03/29/24 20:54 4 mg ONCE ONE Administration Sodium Chloride 10 ml 03/29/24 22:10 03/29/24 22:11 Sodium Chloride 0.9% 10ml Syr (Rad Only) IV 03/29/24 22:11 10 ml ONCE ONE Administration ORDERS Category Date Time Status CT abdomen pelvis w con Stat Cat Scan 03/29/24 21:32 Completed BMP [Basic Metabolic Panel] Stat Lab 03/29/24 19:40 Completed CBC w/Auto Diff [Complete Blood Count Auto Diff] Stat Lab 03/29/24 19:40 Completed Diarrhea 23 Panel, PCR Stat Lab 03/29/24 21:01 Received Lipase Stat Lab 03/29/24 19:40 Completed Magnesium Stat Lab 03/29/24 19:40 Completed Urine Culture Stat Micro 03/29/24 18:51 Received Medical Decision Narrative: In summary patient is a 83-year-old female who presents to the emergency department for evaluation of nausea vomiting diarrhea and abdominal pain. Patient is initially normotensive at 122/77 with a heart rate of 91 normal sinus rhythm on the bedside monitor breathing 18 times a minute satting at 93% on room air upon arrival, afebrile at 98.9. Physical exam reveals a well-nourished well-developed unwell appearing 83-year-old female does not appear to be in acute distress. Examination of chest reveals clear breath sounds examination abdomen reveals diffuse tenderness without rebound or guarding or rigidity hyperactive bowel sounds.. Differential diagnosis includes gastroenteritis versus diverticulitis versus appendicitis versus cholecystitis etc. Initial workup will be conducted with hematologic labs urinalysis diarrhea panel CT scan abdomen pelvis. Initial interventions include crystalloid bolus Zofran Toradol. Initial workup reviewed by me and although incompleted handoff at [address] Pelletier patient is low on her magnesium which I have started repletion. Remainder of her workup is pending I was consulted by the MITCHELL, and we discussed the complexity of the problems being addressed. I approved the treatment and management plan for this patient's care in the Emergency Department, thus performing a substantive portion of the medical decision making. Labs largely unremarkable, patient mildly hyponatremic and was given fluids for this. Magnesium repleted. Urinalysis unconcerning. CT of the abdomen and pelvis independently interpreted and no acute intra-abdominal abnormalities. Because patient at baseline without signs or symptoms of clinical decompensation, deemed appropriate for discharge. Results were relayed to patient who voiced understanding and were agreeable to outpatient management and follow up. I discussed my clinical impression with patient and answered all questions. At this time, the evidence for any other entities in the differential is insufficient to warrant any further testing or ED observation. This was explained as well. Advisory was given that persistent or worsening symptoms require further evaluation. I confirmed the understanding of this discussion. Kunal Wood MD Critical Care <MADY Escobar - Last Filed: 03/29/24 21:46> Critical Care Time Critical Care Time: Yes Attestation: On 03/29/24, the high probability of a clinically significant, sudden or life threatening deterioration of the following system(s) required my full and direct attention, intervention and personal management. The time I documented below is in addition to time spent performing reported procedures but includes the following listed in this critical care notation. Total Time Total Critical Care Time: 35
[2024-03-29 20:48] LABS: Chloride 100 mmol/L (98-107); Sodium 130 mmol/L (136-145)
[2024-03-29 20:49] LABS: Potassium 4.4 mmoL/L (3.5-5.1)
[2024-03-29 20:51] LABS: Blood Urea Nitrogen 25 mg/dl (7-17); Creatinine Clearance Estimated 58 mL/min (50-200); Estimated Glomerular Filt Rate 53 ml/min (>60); GFR (African American) 64 ML/MIN (>60)
[2024-03-29 20:52] LABS: Anion Gap 11.4 mEq/L (5-15); Calcium 9.1 mg/dl (8.4-10.2); Carbon Dioxide 23 mmol/L (22.0-30.0); Glucose 166 mg/dl (74-100)
[2024-03-29 20:56] LABS: Basophils % 0.2 % (0.1-2.0); Hematocrit 45.9 % (37.0-47.0); Hemoglobin 15.7 g/dL (12.2-16.2); Lymphocytes # 0.3 K/mm3 (0.7-4.5); Lymphocytes % 3.2 % (10-50); Mean Corpuscular HGB Conc 34.2 g/dL (31.8-35.4); Mean Corpuscular Hemoglobin 30.4 pg (27.0-31.2); Mean Corpuscular Volume 88.8 fl (81-99); Mean Platelet Volume 9.5 fl (7.4-10.4); Monocytes # 0.3 K/mm3 (0.1-1.0); Monocytes % 2.6 % (1.7-9.3); Neutrophils # 9.9 K/mm3 (1.8-7.8); Neutrophils % 93.6 % (37.0-80.0); Platelet Count 293 K/mm3 (142-424); Red Blood Count 5.17 M/mm3 (4.20-5.40); Red Cell Distribution Width 12.5 % (11.5-17.5); White Blood Count 10.5 K/mm3 (4.8-10.8)
[2024-03-29 20:57] LABS: MANUAL DIFFERENTIAL MANUAL DIFFERENTIAL (MANUAL DIFF)
[2024-03-29] MEDS: LACTATED RINGERS 1000ML 1,000 ML 999 ML IV (20:58)
[2024-03-29] MEDS: KETOROLAC 30MG/ML VIAL 15 MG IV (20:59)
[2024-03-29] MEDS: ONDANSETRON 4MG/2ML VIAL 4 MG IV (20:59)
[2024-03-29 21:03] LABS: Lipase 45 U/L (23-300); Magnesium 1.4 mg/dl (1.6-2.3)
[2024-03-29 21:09] LABS: Adenovirus F 40/41, stool Not Detected (NotDetected); Astrovirus Not Detected (NotDetected); Campylobacter Not Detected (NotDetected); Clostridium Difficile A/B, PCR Not Detected (NotDetected); Cryptosporidium Not Detected (NotDetected); Cyclospora Cayetanesis Not Detected (NotDetected); Entamoeba histolytica Not Detected (NotDetected); Enteroaggregative E coli Not Detected (NotDetected); Enteropathogenic E coli Not Detected (NotDetected); Enterotoxigenic E coli Not Detected (NotDetected); Giardia lamblia Not Detected (NotDetected); Plesimonas Shigalloides, PCR Not Detected (NotDetected); Rotavirus A Not Detected (NotDetected); Salmonella, PCR Not Detected (NotDetected); Sapovirus Not Detected (NotDetected); Shiga-like toxin E coli Not Detected (NotDetected); Shigella Enterovasive E coli Not Detected (NotDetected); Vibrio Cholerae Not Detected (NotDetected); Vibrio, PCR Not Detected (NotDetected); Yersinia Entercolitica, PCR Not Detected (NotDetected)
--- NOTE | 2024-03-29 21:32 | CT_ITS ---
PROCEDURE INFORMATION: Exam: CT Abdomen And Pelvis With Contrast Exam date and time: 03/29/2024 10:11 PM Age: 83 years old Clinical indication: Nausea and vomiting; Abdominal pain; Additional info: Nausea vomiting abdominal pain TECHNIQUE: Imaging protocol: Computed tomography of the abdomen and pelvis with contrast. Radiation optimization: All CT scans at this facility use at least one of these dose optimization techniques: automated exposure control; mA and/or kV adjustment per patient size (includes targeted exams where dose is matched to clinical indication); or iterative reconstruction. Contrast material: ISOVUE; Contrast volume: 75 ml; Contrast route: IV; COMPARISON: 1. CT ABDOMEN PELVIS WO CON 01/22/2021 2:[address] abdomen pelvis wo con 03/23/2018 7:10 PM 3. CR XR ACUTE ABDOMEN SERIES 04/06/2022 7:28 PM FINDINGS: Lungs: There are scattered calcified granulomas in the lungs which most likely reflect prior granulomatous disease. Scattered areas of bronchial wall thickening which are likely chronic inflammatory. A few areas of subpleural reticulation are noted, nonspecific. Liver: Normal. Gallbladder and biliary ducts: No acute process. Pancreas: There is fatty replacement of the pancreas. Spleen: Normal. Adrenal glands: The adrenal glands appear normal. Kidneys and ureters: Simple appearing left midpole renal cyst. Stomach and bowel: The stomach, small bowel, and colon are well-distended and show no evidence of wall thickening, masses, or obstruction. Appendix: No evidence of appendicitis. Intraperitoneal space: Unremarkable. Vasculature: There is atherosclerotic disease of the visualized aorta and its major branch vessels. Lymph nodes: No lymphadenopathy. Urinary bladder: There is mild bladder wall thickening, nonspecific. Reproductive: No acute process. Bones/joints: There is diffuse degenerative disease of the visualized osseous structures. Soft tissues: There is a small fat containing umbilical hernia. IMPRESSION: Mild urinary bladder wall thickening with pericystic stranding, findings may reflect cystitis. COMMENTS: Consistent with the [place] [employer]'s Incidental Findings Committee white paper (J Am Yesenia Radiol 2018): Any incidental renal lesion less than 1 cm or classified as too small to characterize, or any incidental cystic renal lesion characterized as simple-appearing, is likely benign. No follow-up imaging is recommended for these lesions per consensus recommendations based on imaging criteria.
[2024-03-29] MEDS: MAGNESIUM SULFATE IN WATER 2 GM/50 ML PIGGYBACK IV (21:54)
[2024-03-29 22:09] LABS: Lymphocytes % 3 % (10-50); Monocytes % 3 % (2-9); Neutrophils % 94 % (42-76); Platelet Estimate Normal; Stomatocytes 1+; Total Cells Counted 100
[2024-03-29] MEDS: SODIUM CHLORIDE 0.9% 10ML SYR (RAD ONLY) 10 ML IV (22:11)
[2024-03-29] MEDS: IOPAMIDOL-370 (76%);100ML BOTTLE 75 ML IV (22:12)
[2024-03-29 23:07] LABS: Norovirus Detected (NotDetected)
[2024-03-29 23:10] VITALS: BP 98/59; PULSE 82; RESP 16; TEMP 36.6; O2SAT 100
--- NOTE | 2024-04-01 12:13 | PC.NURSE ---
URINE CULTURE REVIEWED BY Tiburcio RIOS APRN AND HARRISON SENT TO CLINIC PHARMACY FOR PATIENT. PATIENT NOTIFIED OF RESULTS AND NEW PRESCRIPTION AT THIS TIME. PATIENT ADVISED TO FOLLOW-UP WITH PCP. PATIENT VERBALIZED UNDERSTANDING
== END 2024-03-29 23:29 | disposition home or self-care (01) ==
LOC: UTC 19:47 → ER 19:49
PROVIDERS: Nurse Practitioner Family; Physician Assistant; Emergency Provider Emergency Medicine; PCP Internal Medicine
DX: E83.42 Hypomagnesemia (principal); E87.1 Hypo-osmolality and hyponatremia; R19.7 Diarrhea, unspecified; R10.9 Unspecified abdominal pain; M54.9 Dorsalgia, unspecified; R11.2 Nausea with vomiting, unspecified; R68.83 Chills (without fever)
CPT/HCPCS: 74177; 80048; 81003; 83690; 83735; 85007; 85025; 85027; 87086; 87088; 87186; 87507; 87804; 96361; 96365; 96374; 96375; 99285; J1885; J2405; J3475; J7120; Q9967

== ENCOUNTER 2024-06-24 14:57 | Outpatient (CLI) | payer MEDICARE, SELFPAY ==
[2024-06-24 14:12] LABS: Alanine Aminotransferase 21 U/L (12-78); Albumin Level 4.1 g/dl (3.5-5.0); Albumin/Globulin Ratio 1.3 (1.1-1.8); Alkaline Phosphatase 107 U/L (38-126); Anion Gap 14.1 mEq/L (5-15); Aspartate Amino Transferase 29 U/L (14-36); Bilirubin,Total 0.6 mg/dl (0.2-1.3); Blood Urea Nitrogen 25 mg/dl (7-17); Calcium 9.1 mg/dl (8.4-10.2); Carbon Dioxide 27 mmol/L (22.0-30.0); Chloride 101 mmol/L (98-107); Chol/HDL Ratio 4.6 (1-3.5); Cholesterol 187 mg/dl (140-200); Estimated Glomerular Filt Rate 43 ml/min (>60); GFR (African American) 52 ML/MIN (>60); Globulin 3.1 g/dL (1.3-3.2); Glucose 102 mg/dl (74-100); HDL Cholesterol 41 mg/dl (40-60); Potassium 4.1 mmoL/L (3.5-5.1); Sodium 138 mmol/L (136-145); Total Protein,Serum 7.2 g/dl (6.3-8.2); Triglycerides 214 mg/dl (30-150); VLDL Cholesterol 43 mg/dL (0-40)
[2024-06-24 14:23] LABS: Direct LDL Cholesterol 87.21 mg/dL (100-129)
[2024-06-24 15:09] LABS: Hemoglobin A1C 5.9 % (4.0-6.0)
== END 2024-06-24 23:59 | disposition home or self-care (01) ==
LOC: LAB.DROPOF 14:57
PROVIDERS: PCP Internal Medicine; Visit Provider Internal Medicine
DX: I25.10 Atherosclerotic heart disease of native coronary artery without angina pectoris (principal); I10 Essential (primary) hypertension; E78.5 Hyperlipidemia, unspecified; R73.02 Impaired glucose tolerance (oral); M15.0 Primary generalized (osteo)arthritis
CPT/HCPCS: 80053; 80061; 83036

== ENCOUNTER 2024-08-24 10:38 | Emergency (ER) | payer MEDICARE, SELFPAY ==
[2024-08-24] VITALS (8 sets, daily range): BP systolic 155–182; BP diastolic 79–107; PULSE 49–70; RESP 14–18; TEMP 36.7; O2SAT 95–99; BMI 36.0
--- NOTE | 2024-08-24 10:39 | ECG_ITS ---
APPROVED REPORT Exam: Resting ECG HR:68 bpm ECG Measurements Heart Rate 68 AXES AL 175 P 8 QRSd 94 QRS 30 QT 406 T 68 QTc 423 Conclusion SINUS RHYTHM LOW QRS VOLTAGE IN PRECORDIAL LEADS [QRS DEFLECTION < 1.0 mV IN CHEST LEADS] BORDERLINE ECG Electronically signed by : GINNA MCCALL, 08/24/2024 15:20:40
--- NOTE | 2024-08-24 10:45 | PC.NURSE ---
DR MCCALL AT BEDSIDE
--- NOTE | 2024-08-24 10:53 | CT_ITS ---
FINAL REPORT TECHNIQUE: The patient was injected with IV contrast. Axial images were obtained through the chest in a PE protocol. 3-D reconstruction images were also performed. Individualized dose reduction techniques using automated exposure control or adjustment of the MA and/or KV according to patient's size were employed. CLINICAL HISTORY: sharp L pleuritic CP states started last night, worse this morning COMPARISON: 08/27/2021 FINDINGS: Mediastinal vasculature is adequately opacified. No pulmonary artery filling defects are identified to suggest PE. Mild dependent edema is noted. There is no aortic dissection. There is no axillary adenopathy. There is no hilar or mediastinal adenopathy. There is dystrophic calcification in the posterior right lobe of the liver. The heart size is normal. There is no pericardial or pleural effusion. Limited images of the upper abdomen demonstrate a 2.8 cm left renal cyst. No suspicious infiltrate or nodule is identified. IMPRESSION: No pulmonary embolus or dissection. Reviewed, Interpreted and Dictated by Sandip Shi MD Transcribed by Naomi Landa Authenticated and [facility]
[2024-08-24 11:03] LABS: Basophils % 0.4 % (0.1-2.0); Eosinophils # 0.1 Kmm3 (0.0-0.4); Eosinophils % 1.3 % (0.1-12.0); Hematocrit 43.7 % (37.0-47.0); Hemoglobin 14.2 g/dL (12.2-16.2); Immature Granulocytes # 0.03 10^3uL; Immature Granulocytes % 0.4 %; Lymphocytes # 1.5 K/mm3 (0.7-4.5); Lymphocytes % 20.5 % (10-50); Mean Corpuscular HGB Conc 32.5 g/dL (31.8-35.4); Mean Corpuscular Hemoglobin 29.5 pg (27.0-31.2); Mean Corpuscular Volume 90.9 fl (81-99); Mean Platelet Volume 8.6 fl (7.4-10.4); Monocytes # 0.6 K/mm3 (0.1-1.0); Monocytes % 7.4 % (1.7-9.3); Neutrophils # 5.3 K/mm3 (1.8-7.8); Nucleated Red Blood Cells # 0 10^3/uL; Nucleated Red Blood Cells % 0 %; Platelet Count 258 K/mm3 (142-424); Red Blood Count 4.81 M/mm3 (4.20-5.40); Red Cell Distribution Width 12.5 % (11.5-17.5); Red Cell Distribution Width-SD 41.5 fL; White Blood Count 7.5 K/mm3 (4.8-10.8)
[2024-08-24] MEDS: KETOROLAC 30MG/ML VIAL 15 MG IV (11:03)
[2024-08-24] MEDS: ACETAMINOPHEN 500MG TAB 1000 MG PO (11:03)
--- NOTE | 2024-08-24 11:04 | ED_ITS ---
Discharge Plan Disposition Patient Disposition: Home, Self-Care Condition: Good Prescriptions Prescriptions: New naproxen 500 mg tablet 500 mg PO BID 7 Days Qty: 14 0RF No Action aspirin [Adult Aspirin Regimen] 81 mg tablet,delayed release (DR/EC) 81 mg PO DAILY Qty: 30 2RF losartan-hydrochlorothiazide 50-12.5 mg tablet 1 tab PO DAILY Qty: 90 1RF lorazepam 0.5 mg tablet 0.5 mg PO TID PRN (Reason: anxiety) Qty: 90 0RF omeprazole 40 mg capsule,delayed release(DR/EC) 40 mg PO DAILY Qty: 30 0RF metoprolol succinate 50 mg tablet extended release 24 hr 50 mg PO DAILY Qty: 90 1RF Referrals Follow up/Referrals: Bridger Tena MD [Primary Care Provider, Medical] - See instructions Daniel Banegas MD [Staff Physician, Cardiology] - See instructions Activity Restrictions/Add. Instructions Additional Instructions/Restrictions: You were evaluated in the emergency department today. Please follow-up closely with your primary care provider as well as with cardiology over the next 72 hours. Return to the emergency department right away for new or worsening symptoms. supervisor general your prescription at the pharmacy and take as prescribed. You may also take Tylenol every 4-6 hours as needed for pain. Clinical Impressions Clinical Impression: Pleurisy Instructions Patient Instructions: DI for Pleurisy Print Language Print Language: [place] Discharge ED Provider: Jemima Huynh General Chief Complaint: Chest Pain Stated Complaint: Chest Pain Time Seen by Provider: 08/24/24 10:40 Mode of Arrival: Wheelchair Source of Information: Patient Description of Symptoms (Recalled from ER Triage Doc. by RN): PT REPORTS LEFT SIDED CHEST PAIN THAT STARTED LAST NIGHT WHILE SITTING. PAIN DOES NOT RADIATE, WORSE WITH INSPIRATION. DENIES N/V. NO ABDOMINAL PAIN. HAS NOT HAD PAIN LIKE THIS BEFORE History of Present Illness HPI narrative: This patient is an 83-year-old female with a history of hypertension, GERD, hyperlipidemia, anxiety, and CAD presenting to the emergency department for evaluation with concern for left-sided pleuritic chest pain that started last night. Patient reports that she started having some mild pain last night when she breathes, but today she is now having severe left-sided chest pain anytime she breathes. She denies any recent falls or injuries. No abdominal pain, nausea, vomiting, or other concerns. She denies ever experiencing anything like this in the past. Related Data Previous Rx's ?Medication ?Instructions ?Recorded aspirin 81 mg tablet,delayed 81 mg PO DAILY #30 tabs 1 release (Adult Aspirin Regimen) losartan 50 mg-hydrochlorothiazide 1 tab PO DAILY #90 tabs 06/01/24 12.5 mg tablet lorazepam 0.5 mg tablet 0.5 mg PO TID PRN anxiety #9 0 tabs 06/02/24 omeprazole 40 mg capsule,delayed 40 mg PO DAILY #30 ca ps 06/07/24 release metoprolol succinate 50 mg 50 mg PO DAILY #90 tabs 06/01 tablet,extended release 24 hr naproxen 500 mg tablet 500 mg PO BID 7 days #14 tab s 08/24/24 Allergies Allergy/AdvReac Type Severity Reaction Status Date / Time No Known Allergies Allergy Verified 06/24/24 11:07 [facility] Disclaimer: The information contained in this section may have been updated after the patient was seen, as this information can be updated by other users. Medical History Abnormal nuclear cardiac imaging test Palpitations Edema Dyspnea Chest pain Cataract Hypertension Surgical History History of esophagogastroduodenoscopy (EGD) Family History Other Family history of cancer Social History Smoking Status: Never smoker alcohol intake: never substance use type: denies use current occupational status: retired Travel in the last 8 weeks?: None caffeine: Yes Have you lived/traveled outside [place] in past 30 days?: No Contact w/someone who lives/traveled outside US past 30 days?: No Exposure to someone with infectious disease in past 14 days?: No Do you have a fever (greater than 100.4 F or 38 C)?: No Have you tested positive for COVID-19?: No Exposed to someone with COVID-19 in past 14 days?: No Do you have a sore throat?: No Do you have a cough?: No Do you have any weakness?: No Do you have any diarrhea?: No Are you experiencing any unusual bleeding?: No Do you have any muscle aches/pain?: No Do you have any abdominal pain?: No Are you experiencing loss of taste or smell?: No Other Medical History Have you received the Flu Vaccine for this season: No Have you received the Pneumonia Vaccine: Yes ROS Obtained: Yes All systems reviewed & no additional complaints except as documented Physical Exam General General appearance: alert and in no apparent distress Comment: Splinting respirations secondary to pain Head Head exam: atraumatic and normocephalic Eye Eye exam: Present normal appearance, PERRL and EOMI ENT ENT exam: Present normal exam, normal oropharynx, mucous membranes moist and normal external ear exam Neck Neck exam: Present normal inspection, full ROM and trachea midline; Absent tenderness Chest Chest inspection: Present normal inspection and symmetric chest wall rise; Absent tenderness Respiratory Respiratory exam: Present other (Splinted respirations secondary to pain); Absent normal lung sounds bilaterally (Diminished breath sounds in the right lung), respiratory distress, wheezes, stridor or accessory muscle use Cardiovascular Cardiovascular exam: Present regular rate and normal rhythm Abdominal Exam Abdominal exam: Present soft; Absent distention, tenderness or guarding Extremities Exam Extremities exam: Present normal inspection, full ROM and normal capillary refill; Absent tenderness or edema Back Exam Back exam: Present normal inspection and full ROM; Absent tenderness Neurological Exam Neurological exam: Present alert, oriented X3, CN II-XII intact and normal gait; Absent motor sensory deficit Psychiatric Psychiatric exam: Present normal affect and normal mood Skin Skin exam: Present warm and dry HEART Score HEART Score HEART Score assessment performed?: Yes History (anamnesis): Slightly suspicious ECG: Normal Age: >65 years Risk factors: 3 or more risk factors Troponin: </= normal limit HEART Score: 4 Critical Care Critical Care Time Critical Care Time: No Medical Decision Making Madan Inquiry Pt receiving controlled substance: No Vital Signs Vital Signs: 08/24/24 10:42 08/24/24 11:01 08/24/24 12:00 Temperature 98.0 F Temperature Source Oral Pulse Rate 61 60 Pulse Rate [Apical] 70 Respiratory Rate 18 16 16 Blood Pressure 155/87 H 159/79 H Blood Pressure [Right Arm] 182/86 H Blood Pressure Mean 123 105 Blood Pressure Mean [Right Arm] 118 Blood Pressure Source Blood Pressure Source [Right Arm] Automatic Cuff Blood Pressure Position Blood Pressure Position [Right Arm] Sitting 02 Sat by Pulse Oximetry 99 96 97 Oxygen Delivery Method Room Air 08/24/24 12:30 08/24/24 12:55 08/24/24 12:56 Temperature Temperature Source Pulse Rate 49 L 51 L 51 L Pulse Rate [Apical] Respiratory Rate 18 14 14 Blood Pressure 162/107 H 181/88 H 171/87 H Blood Pressure [Right Arm] Blood Pressure Mean 125 119 115 Blood Pressure Mean [Right Arm] Blood Pressure Source Blood Pressure Source [Right Arm] Blood Pressure Position Blood Pressure Position [Right Arm] 02 Sat by Pulse Oximetry 97 95 97 Oxygen Delivery Method 08/24/24 13:00 08/24/24 14:20 Temperature 98.0 F Temperature Source Oral Pulse Rate 49 L 60 Pulse Rate [Apical] Respiratory Rate 15 18 Blood Pressure 170/93 H 177/86 H Blood Pressure [Right Arm] Blood Pressure Mean 118 Blood Pressure Mean [Right Arm] Blood Pressure Source Automatic Cuff Blood Pressure Source [Right Arm] Blood Pressure Position Sitting Blood Pressure Position [Right Arm] 02 Sat by Pulse Oximetry 96 Oxygen Delivery Method Room Air Lab Data Labs: Lab Results 08/24/24 10:45: WBC 7.5, RBC 4.81, Hgb 14.2, Hct 43.7, MCV 90.9, MCH 29.5, MCHC 32.5, RDW 12.5, Plt Count 258, MPV 8.6, Neut % (Auto) 70.0, Lymph % (Auto) 20.5, [place] % (Auto) 7.4, Eos % (Auto) 1.3, Baso % (Auto) 0.4, Neut # (Auto) 5.3, Lymph # (Auto) 1.5, [place] # (Auto) 0.6, Eos # (Auto) 0.1, Baso # (Auto) 0.0, PT 10.9, INR 0.98, APTT 28.3, Sodium 134 L, Potassium 4.0, Chloride 100, Carbon Dioxide 28, Anion Gap 10.0, BUN 19 H, Creatinine 1.10 H, Estimated Creat Clear 53, E stimated GFR 47 L, Est GFR ( Amer) 57 L, Glucose 119 H, Calcium 9.1, Total Bilirubin 0.6, AST 42 H, ALT 33, Alkaline Phosphatase 113, Troponin I < 0.01, Total Protein 7.6, Albumin 4.2, Globulin 3.4 H, Albumin/Globulin Ratio 1.2, HCV Ab NATALIE w/Rflx PCR Qn Negative, HIV Ag/Ab Combo Qual Negative 08/24/24 13:20: Troponin I < 0.01 08/24/24 10:45 08/24/24 10:45 Response Orders (Tests/Meds): ED MEDICATIONS Generic Name Dose Route Start Last Admin Trade Name Freq PRN Reason Stop Dose Admin Sodium Chloride 10 ml 08/24/24 11:31 08/24/24 11:32 Sodium Chloride 0.9% 10ml Syr (Rad Only) IV 09/23/24 11:30 10 ml NEEDED PRN Administration Maintain IV Site Discontinued Medications Generic Name Dose Route Start Last Admin Trade Name Freq PRN Reason Stop Dose Admin Acetaminophen 1,000 mg 08/24/24 10:54 08/24/24 11:03 Acetaminophen 500mg Tab PO 08/24/24 10:55 1,000 mg ONCE ONE Administration Iopamidol 75 ml 08/24/24 11:31 08/24/24 11:32 Iopamidol-370 (76%);100ml Bottle IV 08/24/24 11:32 75 ml ONCE ONE Administration Ketorolac Tromethamine 15 mg 08/24/24 10:53 08/24/24 11:03 Ketorolac 30mg/Ml Vial IV 08/24/24 10:54 15 mg ONCE ONE Administration Sodium Chloride 50 ml 08/24/24 11:31 08/24/24 11:32 0.9 % Sodium Chloride 50 Ml Vial IV 08/24/24 11:32 50 ml ONCE ONE Administration ORDERS Category Date Time Status CTA Chest [CT angio chest PE protocol] Stat Cat Scan 08/24/24 10:53 Completed Activated Partial Thrombo Time Stat Lab 08/24/24 10:45 Completed Complete Blood Count Auto Diff Stat Lab 08/24/24 10:45 Completed Comprehensive Metabolic Panel Stat Lab 08/24/24 10:45 Completed HIV Combo Stat Lab 08/24/24 10:45 Completed Hepatitis C Ab Qual. W/ RFX Stat Lab 08/24/24 10:45 Completed Prothrombin Time INR Stat Lab 08/24/24 10:45 Completed Trop I [Troponin I] Stat Lab 08/24/24 10:45 Completed Troponin I Q3H Lab 08/24/24 13:20 Completed Troponin I Q3H Lab 08/24/24 17:00 Ordered ECG Data Tracing #1: Attestation: I reviewed this ECG and interpreted as documented below: ECG Narrative: Normal sinus rhythm with a ventricular rate of [address] changes concerning for ischemia. Normal intervals ECG initial impression date: 08/24/24 ECG initial impression time: 10:43 MDM Narrative Medical Decision Narrative: In summary, this patient is a 83-year-old female presenting to the Emergency Department for evaluation of left-sided pleuritic chest pain started last night but worsened today. Differential diagnoses considered include but are not limited to PE, pneumothorax, pneumonia, pleurisy, pericarditis, myocarditis, ACS. Ruling out the most morbid conditions drove assessment. It should be noted patient's history includes hypertension, hyperlipidemia, CAD, GERD which may or may not be at goal therapy. This complicates all aspects of care by increasing patient's risk for morbidity. I reviewed patient's past medical records and noted prior cardiology evaluations for maintenance of health in the setting of angina with prior abnormal stress test for which the patient d declined further outpatient workup. On exam, the patient is sitting upright. She is uncomfortable appearing and splinting respirations secondary to pain. She has slightly diminished breath sounds in the left lung. Vitals are normal on cardiac telemetry with no tachypnea, tachycardia, or hypoxia. She does have mildly elevated blood pressure in the setting of chronic hypertension and acute pain. Workup included CBC, CMP, troponin, coags, CTA PE protocol, EKG. EKG obtained is reassuring. Patient was given IV Toradol, oral Tylenol for symptomatic improvement. I independently interpreted CT scan prior to the radiologist read and noted no PE, no pneumothorax, no obvious large focal consolidation concerning for pneumonia, no rib fracture. Please see their read for final interpretation. Labs were obtained that demonstrated reassuring CBC with no significant leukocytosis or anemia, reassuring chemistry with only very mild hyponatremia. Initial troponin is negative.. On reassessment, patient had complete resolution of her symptoms after administration of interventions above. She is feeling a lot better. Second troponin was obtained and the patient was monitored on cardiac telemetry while waiting for this with reassuring vital signs with exception of hypertension. Second opponent resulted and was also negative, and the patient had no recurrence of pain while in the emergency department. Given this, I feel the patient is appropriate for discharge home with close follow-up with cardiology and PCP. Prescription for naproxen was given for pleurisy and instructions for close follow-up were given as well. Strict return precautions were given.
--- NOTE | 2024-08-24 11:05 | PC.NURSE ---
PT MEDICATED PER EMAR, NO NEEDS AT THIS TIME. CALL LIGHT WITHIN REACH
[2024-08-24 11:10] LABS: Albumin Level 4.2 g/dl (3.5-5.0); Chloride 100 mmol/L (98-107)
[2024-08-24 11:11] LABS: Activated Partial Thrombo Time 28.3 seconds (22.8-30.6); INR 0.98 (0.9-1.1); Prothrombin Time 10.9 seconds (10.1-12.5); Sodium 134 mmol/L (136-145)
[2024-08-24 11:13] LABS: Alanine Aminotransferase 33 U/L (12-78); Albumin/Globulin Ratio 1.2 (1.1-1.8); Alkaline Phosphatase 113 U/L (38-126); Aspartate Amino Transferase 42 U/L (14-36); Bilirubin,Total 0.6 mg/dl (0.2-1.3); Blood Urea Nitrogen 19 mg/dl (7-17); Carbon Dioxide 28 mmol/L (22.0-30.0); Creatinine Clearance Estimated 53 mL/min (50-200); Estimated Glomerular Filt Rate 47 ml/min (>60); GFR (African American) 57 ML/MIN (>60); Globulin 3.4 g/dL (1.3-3.2); Total Protein,Serum 7.6 g/dl (6.3-8.2)
[2024-08-24 11:14] LABS: Calcium 9.1 mg/dl (8.4-10.2); Glucose 119 mg/dl (74-100)
--- NOTE | 2024-08-24 11:27 | PC.NURSE ---
PT TO CT
[2024-08-24] MEDS: SODIUM CHLORIDE 0.9% 10ML SYR (RAD ONLY) 10 ML IV (11:32)
[2024-08-24] MEDS: IOPAMIDOL-370 (76%);100ML BOTTLE 75 ML IV (11:32)
[2024-08-24] MEDS: 0.9 % SODIUM CHLORIDE 50 ML VIAL IV (11:32)
--- NOTE | 2024-08-24 11:41 | PC.NURSE ---
ROUNDED ON PT, REPORTS FEELING BETTER AFTER MEDICATED. NO NEEDS AT THIS TIME. CALL LIGHT WITHIN REACH. FAMILY AT BEDSIDE
[2024-08-24 11:47] LABS: Troponin I < 0.01 ng/ml (0.00-0.034)
--- NOTE | 2024-08-24 12:10 | PC.NURSE ---
ROUNDED ON PT, UPDATED ON POC. NO NEEDS AT THIS TIME. FAMILY AT BEDSIDE. CALL LIGHT WITHIN REACH
--- NOTE | 2024-08-24 12:43 | PC.NURSE ---
rounded on patient, no needs voiced at this time.
[2024-08-24 13:25] LABS: HIV Combo NEGATIVE (Negative)
[2024-08-24 13:32] LABS: Hepatitis C Ab Qual. W/ RFX NEGATIVE (Negative)
[2024-08-24 13:58] LABS: Troponin I < 0.01 ng/ml (0.00-0.034)
--- NOTE | 2024-08-24 14:00 | PC.NURSE ---
ROUNDED ON PT, NO NEEDS AT THIS TIME
--- NOTE | 2024-08-24 14:17 | PC.NURSE ---
DR MCCALL AT BEDSIDE TO UPDATE PT ON POC
== END 2024-08-24 14:26 | disposition home or self-care (01) ==
PROVIDERS: Emergency Provider Emergency Medicine; PCP Internal Medicine
DX: R07.9 Chest pain, unspecified (principal); R09.1 Pleurisy; I10 Essential (primary) hypertension; E78.5 Hyperlipidemia, unspecified; K21.9 Gastro-esophageal reflux disease without esophagitis; Z86.79 Personal history of other diseases of the circulatory system; Z11.59 Encounter for screening for other viral diseases; Z11.4 Encounter for screening for human immunodeficiency virus [HIV]
CPT/HCPCS: 71275; 80053; 80074; 84484; 85025; 85610; 85730; 87389; 93005; 96374; 99285; J1885; Q9967

== ENCOUNTER 2024-12-18 17:26 | Emergency (ER) | payer MEDICARE, SELFPAY ==
[2024-12-18] VITALS (15 sets, daily range): BP systolic 144–188; BP diastolic 78–149; PULSE 64–75; RESP 17–18; TEMP 36.6–36.9; O2SAT 89–100; BMI 36.0
--- NOTE | 2024-12-18 17:46 | CT_ITS ---
PROCEDURE INFORMATION: Exam: CT Abdomen And Pelvis With Contrast Exam date and time: 12/18/2024 6:28 PM Age: 84 years old Clinical indication: Other: Abdominal pain, diarrhea, vomiting TECHNIQUE: Imaging protocol: Computed tomography of the abdomen and pelvis with contrast. Radiation optimization: All CT scans at this facility use at least one of these dose optimization techniques: automated exposure control; mA and/or kV adjustment per patient size (includes targeted exams where dose is matched to clinical indication); or iterative reconstruction. Contrast material: ISOVUE; Contrast volume: 75 ml; Contrast route: IV; COMPARISON: CT ABDOMEN PELVIS W CON 03/29/2024 10:11 PM FINDINGS: Lungs: The visualized lung bases demonstrate no focal infiltrates or pleural effusions. Liver: Focal dystrophic calcification noted within the liver dome region. Otherwise liver unremarkable. Gallbladder and biliary ducts: The gallbladder is normal. There is no evidence of biliary ductal dilation. Pancreas: Normal. No ductal dilation. Spleen: The spleen is normal. Adrenal glands: The adrenal glands appear within normal limits. Kidneys and ureters: Exophytic simple cyst off the left kidney mid zone measures 2 cm. Stomach and bowel: The stomach appears within normal limits. No wall thickening or inflammatory change. Appendix: No evidence of appendicitis. Intraperitoneal space: Unremarkable. No free air. No significant fluid collection. Vasculature: Moderate atherosclerotic calcifications of the aorta. Lymph nodes: Unremarkable. No pathologically enlarged lymph nodes are identified. Urinary bladder: Subtle stranding surrounding the bladder. Not confirmatory but Correlate clinically for cystitis. Reproductive: Unremarkable as visualized. Bones/joints: Unremarkable. No acute fracture. Soft tissues: Unremarkable. IMPRESSION: Subtle stranding surrounding the bladder. Not confirmatory but Correlate clinically for cystitis. Otherwise unremarkable exam COMMENTS: Consistent with the [employer]'s Incidental Findings Committee white paper (J Am Yesenia Radiol 2018): Any incidental renal lesion less than 1 cm or classified as too small to characterize, or any incidental cystic renal lesion characterized as simple-appearing, is likely benign. No follow-up imaging is recommended for these lesions per consensus recommendations based on imaging criteria.
[2024-12-18] MEDS: ONDANSETRON 4MG/2ML VIAL 4 MG IV ×2 (17:57→20:02)
[2024-12-18] MEDS: MORPHINE 4MG/ML SYRINGE 4 MG IV ×2 (17:57→19:35)
[2024-12-18 18:00] LABS: Hematocrit 39.8 % (37.0-47.0); Hemoglobin 13.6 g/dL (12.2-16.2); Immature Granulocytes % 0.6 %; Mean Corpuscular HGB Conc 34.2 g/dL (31.8-35.4); Mean Corpuscular Hemoglobin 30.0 pg (27.0-31.2); Mean Corpuscular Volume 87.9 fl (81-99); Nucleated Red Blood Cells % 0 %; Platelet Count 223 K/mm3 (142-424); Red Blood Count 4.53 M/mm3 (4.20-5.40); Red Cell Distribution Width-SD 39.8 fL; White Blood Count 8.6 K/mm3 (4.8-10.8)
--- NOTE | 2024-12-18 18:09 | HMH.EDGENADL ---
Discharge Plan Disposition Patient Disposition: Home, Self-Care Condition: Good Prescriptions Prescriptions: New dicyclomine 10 mg capsule 10 mg PO BID PRN (Reason: abdominal pain) Qty: 14 0RF metoclopramide HCl 10 mg tablet 10 mg PO Q8H PRN (Reason: Nausea) Qty: 21 0RF No Action aspirin [Adult Aspirin Regimen] 81 mg tablet,delayed release (DR/EC) 81 mg PO DAILY Qty: 30 2RF lorazepam 0.5 mg tablet 0.5 mg PO TID PRN (Reason: anxiety) Qty: 90 0RF metoprolol succinate 50 mg tablet extended release 24 hr 50 mg PO DAILY Qty: 90 1RF losartan-hydrochlorothiazide 50-12.5 mg tablet 1 tab PO DAILY Qty: 90 1RF omeprazole 40 mg capsule,delayed release(DR/EC) See Rx Instructions .ROUTE .COMPLEX Qty: 90 1RF Dose Instruction: TAKE 1 CAPSULE EVERY DAY Rx Instructions: TAKE 1 CAPSULE EVERY DAY naproxen 500 mg tablet 500 mg PO BID 7 Days Qty: 14 0RF Referrals Follow up/Referrals: Bridger Tena MD [Primary Care Provider, Medical] - See instructions Activity Restrictions/Add. Instructions Additional Instructions/Restrictions: Your CT scan was normal. Your labs were also normal. I want you to ensure that you are staying well-hydrated at home with electrolyte solutions such as Gatorade. You may take dicyclomine for pain and Reglan for nausea. If you develop worsening abdominal pain that settles into a specific location of your abdomen, intractable nausea and vomiting, decreased urinary output, fever, or any other new or worsening symptoms please return to the emergency department for further evaluation. Additionally I want you to follow-up with your primary care physician in the outpatient setting for further evaluation and monitoring of your symptoms Clinical Impressions Clinical Impression: Abdominal cramping, Nausea, Diarrhea Print Language Print Language: Kiswahili Discharge ED Provider: Sy Garcia Adult HPI General Chief complaint: Nausea/Vomiting/Diarrhea Stated complaint: weakness,vomiting,headache Time Seen by Provider: 12/18/24 17:37 Mode of Arrival: Ambulatory Source of Information: Patient Description of Symptoms (Recalled from ER Triage Doc. by RN): patient presents to the ED for n/v/d that staretd yesterdaya dn worsened today. patient states she always gets this sick right before going to the doctor for annual check ups History of Present Illness HPI narrative: This is an 84-year-old female patient, with past medical history of hypertension, hyperlipidemia, coronary artery disease, and prior hyponatremia, who is presenting to the emergency department today for evaluation of diarrhea and abdominal pain. Patient states that she developed diarrhea yesterday afternoon and today her symptoms have worsened. With the worsening of the symptoms she has had repetitive dry heaving with no active vomiting. She has also developed significant abdominal pain which she cannot pinpoint to 1 focal region of the abdomen. She has had no chest pain and no shortness of breath. No fevers. No hematochezia or melena. No hematemesis. Related Data Previous Rx's ?Medication ?Instructions ?Recorded aspirin 81 mg tablet,delayed 81 mg PO DAILY #30 tabs 12/16/23 release (Adult Aspirin Regimen) lorazepam 0.5 mg tablet 0.5 mg PO TID PRN anxiety #90 tabs 06/02/24 metoprolol succinate 50 mg 50 mg PO DAILY #90 tabs 08/10/24 tablet,extended release 24 hr naproxen 500 mg tablet 500 mg PO BID 7 days #14 tabs 08/24/24 losartan 50 mg-hydrochlorothiazide 1 tab PO DAILY #90 tabs 11/05/24 12.5 mg tablet omeprazole 40 mg capsule,delayed See Rx Instructions .Route 11/05/24 release .COMPLEX #90 caps dicyclomine 10 mg capsule 10 mg PO BID PRN abdominal pain 12/18/24 #14 caps metoclopramide HCl 10 mg tablet 10 mg PO Q8H PRN Nausea #21 tabs 12/18/24 Allergies Allergy/AdvReac Type Severity Reaction Status Date / Time No Known Allergies Allergy Verified 08/26/24 14:14 [facility] Disclaimer: The information contained in this section may have been updated after the patient was seen, as this information can be updated by other users. Medical History Abnormal nuclear cardiac imaging test Palpitations Edema Dyspnea Chest pain Cataract Hypertension Surgical History History of esophagogastroduodenoscopy (EGD) Family History Other Family history of cancer Social History Smoking Status: Never smoker alcohol intake: never substance use type: denies use current occupational status: retired Travel in the last 8 weeks?: None caffeine: Yes Have you lived/traveled outside [place] in past 30 days?: No Contact w/someone who lives/traveled outside [place] past 30 days?: No Exposure to someone with infectious disease in past 14 days?: No Do you have a fever (greater than 100.4 F or 38 C)?: No Have you tested positive for COVID-19?: No Exposed to someone with COVID-19 in past 14 days?: No Do you have a sore throat?: No Do you have a cough?: No Do you have any weakness?: No Do you have any diarrhea?: No Are you experiencing any unusual bleeding?: No Do you have any muscle aches/pain?: No Do you have any abdominal pain?: No Are you experiencing loss of taste or smell?: No Other Medical History Have you received the Flu Vaccine for this season: No Have you received the Pneumonia Vaccine: Yes ROS Obtained: Yes Systems reviewed as appropriate & no additional complaints except as documented Physical Exam General General appearance: other (See MDM) Respiratory Respiratory exam: Present other (See MDM) Cardiovascular Cardiovascular exam: Present other (See MDM) Neurological Exam Neurological exam: Present other (See MDM) Medical Decision Making Medical Records Medical records reviewed: Yes I reviewed the patient's medical records. Screening: Per USPSTF and CDC recommendations, given the prevalence of disease in our region, it is our hospital?s policy to screen for HIV and viral Hepatitis for all patients aged 18 and over and those with ongoing risk factors. Madan Inquiry Pt receiving controlled substance: Yes Madan was queried for this patient: No Risks and benefits of using a controlled substance: were discussed with pt by me Vital Signs: 12/18/24 17:28 12/18/24 17:52 12/18/24 18:01 Temperature 98.5 F Temperature Source Oral Pulse Rate 74 Pulse Rate [Right Radial] 75 Respiratory Rate 18 Blood Pressure 158/83 H Blood Pressure [Right Arm] 188/95 H Blood Pressure Mean Blood Pressure Mean [Right Arm] 126 Blood Pressure Source [Right Arm] Automatic Cuff Blood Pressure Position [Right Arm] Sitting 02 Sat by Pulse Oximetry 100 99 97 Oxygen Delivery Method Room Air Room Air Room Air 12/18/24 19:00 12/18/24 19:00 12/18/24 19:15 Temperature Temperature Source Pulse Rate 72 75 Pulse Rate [Right Radial] Respiratory Rate Blood Pressure 172/110 H Blood Pressure [Right Arm] Blood Pressure Mean 123 Blood Pressure Mean [Right Arm] Blood Pressure Source [Right Arm] Blood Pressure Position [Right Arm] 02 Sat by Pulse Oximetry 91 L 94 L Oxygen Delivery Method 12/18/24 19:30 12/18/24 19:31 12/18/24 19:31 Temperature Temperature Source Pulse Rate 69 73 Pulse Rate [Right Radial] Respiratory Rate Blood Pressure 179/149 H Blood Pressure [Right Arm] Blood Pressure Mean 159 Blood Pressure Mean [Right Arm] Blood Pressure Source [Right Arm] Blood Pressure Position [Right Arm] 02 Sat by Pulse Oximetry 93 L 96 Oxygen Delivery Method 12/18/24 19:43 12/18/24 19:43 12/18/24 19:45 Temperature Temperature Source Pulse Rate 67 64 Pulse Rate [Right Radial] Respiratory Rate Blood Pressure 160/90 H Blood Pressure [Right Arm] Blood Pressure Mean 113 Blood Pressure Mean [Right Arm] Blood Pressure Source [Right Arm] Blood Pressure Position [Right Arm] 02 Sat by Pulse Oximetry 97 89 L Oxygen Delivery Method 12/18/24 20:00 12/18/24 20:00 12/18/24 20:15 Temperature Temperature Source Pulse Rate 71 69 Pulse Rate [Right Radial] Respiratory Rate Blood Pressure 151/87 H Blood Pressure [Right Arm] Blood Pressure Mean 123 Blood Pressure Mean [Right Arm] Blood Pressure Source [Right Arm] Blood Pressure Position [Right Arm] 02 Sat by Pulse Oximetry 93 L 93 L Oxygen Delivery Method Lab Data Lab Results 12/18/24 17:47: WBC 8.6, RBC 4.53, Hgb 13.6, Hct 39.8, MCV 87.9, MCH 30.0, MCHC 34.2, RDW 12.3, Plt Count 223, MPV 8.8, Neut % (Auto) 83.2 H, Lymph % (Auto) 11.1, [place] % (Auto) 4.1, Eos % (Auto) 0.8, Baso % (Auto) 0.2, Neut # (Auto) 7.2, Lymph # (Auto) 1.0, [place] # (Auto) 0.4, Eos # (Auto) 0.1, Baso # (Auto) 0.0, Sodium 129 L, Potassium 3.9, Chloride 94 L, Carbon Dioxide 24, Anion Gap 14.9, BUN 20 H, Creatinine 1.00, Estimated Creat Clear 57, Estimated GFR 53 L, Est GFR ( Amer) 64, Glucose 183 H, Lactate 1.9, Calcium 8.9, Total Bilirubin 0.6, AST 31, ALT 31, Alkaline Phosphatase 127 H, Troponin I < 0.01, Total Protein 6.7, Albumin 4.0, Globulin 2.7, Albumin/Globulin Ratio 1.5, Lipase 42 12/18/24 20:25: Urine Color Yellow, Urine Appearance Clear, Urine pH 7.5, Ur Specific [place] 1.010, Urine Protein Negative, Urine Glucose (UA) Negative, Urine Ketones Negative, Urine Blood Negative, Urine Nitrate Negative, Urine Bilirubin Negative, Urine Urobilinogen 0.2, Ur Leukocyte Esterase Negative, Urine RBC Occasional, Urine WBC Occasional, Ur Squamous Epith Cells None, Urine Bacteria Trace 12/18/24 17:47 12/18/24 17:47 Orders (Tests/Meds): ED MEDICATIONS Discontinued Medications Generic Name Dose Route Start Last Admin Trade Name Freq PRN Reason Stop Dose Admin Dicyclomine HCl 10 mg 12/18/24 19:22 12/18/24 19:35 Dicyclomine 10mg Capsule PO 12/18/24 19:23 10 mg ONCE ONE Administration Iopamidol 75 ml 12/18/24 18:27 12/18/24 18:28 Iopamidol-370 (76%);100ml Bottle IV 12/18/24 18:28 75 ml ONCE ONE Administration Metoclopramide HCl 10 mg 12/18/24 20:32 12/18/24 20:48 Metoclopramide Hcl 10mg/2ml Vial IVP 12/18/24 20:33 10 mg ONCE ONE Administration Morphine Sulfate 4 mg 12/18/24 17:47 12/18/24 17:57 Morphine 4mg/Ml Syringe IV 12/18/24 17:48 4 mg ONCE ONE Administration Morphine Sulfate 4 mg 12/18/24 19:22 12/18/24 19:35 Morphine 4mg/Ml Syringe IV 12/18/24 19:23 4 mg ONCE ONE Administration Ondansetron HCl 4 mg 12/18/24 17:47 12/18/24 17:57 Ondansetron 4mg/2ml Vial IV 12/18/24 17:48 4 mg ONCE ONE Administration Ondansetron HCl 4 mg 12/18/24 20:00 12/18/24 20:02 Ondansetron 4mg/2ml Vial IV 12/18/24 20:01 4 mg ONCE ONE Administration Sodium Chloride 10 ml 12/18/24 18:27 12/18/24 18:28 Sodium Chloride 0.9% 10ml Syr (Rad Only) IV 12/18/24 18:28 10 ml ONCE ONE Administration ORDERS Category Date Time Status CT abdomen pelvis w con Stat Cat Scan 12/18/24 17:46 Completed CBC w/Auto Diff [Complete Blood Count Auto Diff] Stat Lab 12/18/24 17:47 Completed CMP [Comprehensive Metabolic Panel] Stat Lab 12/18/24 17:47 Completed Diarrhea 6-11 Panel, Cdiff PCR Stat Lab 12/18/24 17:47 Ordered Lactic Acid Stat Lab 12/18/24 17:47 Completed Lipase Stat Lab 12/18/24 17:47 Completed Troponin I Stat Lab 12/18/24 17:47 Completed Urinalysis and Microscopic Stat Lab 12/18/24 20:25 Completed ECG Data Tracing #1: I reviewed this ECG and interpreted as documented below: EKG personally interpreted by me demonstrates normal sinus rhythm at a rate of 69 bpm, normal axis, no [place] prolongation, narrow QRS, no QTc prolongation. No ST elevation or depression. No overt signs of ischemia or arrhythmia. Medical Decision Narrative: In summary, this is a an 84-year-old female patient who is presenting to the emergency department today for evaluation of 2 days of diarrhea, diffuse abdominal pain, and dry heaving. Patient's comorbidities include hypertension, hyperlipidemia, and coronary artery disease. On initial evaluation of the patient they were resting comfortably in no acute distress and nontoxic in appearance. They are hemodynamically stable, saturating well room air, and are neurologically intact. On physical examination her heart and lungs are clear to auscultation bilaterally. She has diffuse abdominal tenderness. No peripheral edema noted on exam. She has good capillary refill. She is afebrile Differential diagnosis includes enteritis, gastroenteritis, colitis, diverticulitis, pancreatitis, gastritis, intra-abdominal abscess, small bowel obstruction, among other intra-abdominal catastrophes. We will also rule out ACS/LA with a screening troponin. Initial workup included hematologic labs as well as a urinalysis and a CT scan of the abdomen and pelvis. Initial interventions included 4 mg of morphine and 4 mg of Zofran for symptomatic control. Labs personally interpreted by me demonstrate no leukocytosis or anemia. She has mild hyponatremia of 129 and hypochloremia of 94. No evidence of acute kidney injury. No transaminitis or hyperbilirubinemia. Her troponin is less than 0.01 and she is not having any chest pain so I do not feel that it is necessary to obtain a second troponin. We did obtain a urinalysis which shows trace bacteria, occasional white blood cells, no nitrates and no leukocyte esterase. I do not feel that this is consistent with urinary tract infection. Patient has been unable to provide us with a stool sample here in the emergency department. CT scan of the abdomen and pelvis was personally interpreted by me and demonstrates no evidence of pneumoperitoneum. Official radiology read is in agreement and states that there is no acute abnormality. They do note that there is thickening of the bladder which they state to correlate with her urinalysis. Her urinalysis again does not show any evidence of urinary tract infection. Patient was treated with additional doses of morphine and Zofran while here in the emergency department. We also administered 10 mg of Reglan for nausea and 10 mg of dicyclomine for gastrointestinal spasm. Following this the patient was able to tolerate oral intake with crackers and water. I have informed her that this is likely a viral syndrome causing diarrhea and nausea. I have asked her to follow-up with her primary care physician for further evaluation in the outpatient setting. Will send her home with Reglan and dicyclomine for symptomatic control given that it controlled her symptoms adequately here in the emergency department. At this time all questions have been answered and all parties are agreeable with the decision to discharge home. Critical Care Critical Care Time Critical Care Time: No
[2024-12-18 18:11] LABS: Alanine Aminotransferase 31 U/L (12-78); Albumin Level 4.0 g/dl (3.5-5.0); Albumin/Globulin Ratio 1.5 (1.1-1.8); Alkaline Phosphatase 127 U/L (38-126); Anion Gap 14.9 mEq/L (5-15); Aspartate Amino Transferase 31 U/L (14-36); Bilirubin,Total 0.6 mg/dl (0.2-1.3); Blood Urea Nitrogen 20 mg/dl (7-17); Calcium 8.9 mg/dl (8.4-10.2); Carbon Dioxide 24 mmol/L (22.0-30.0); Chloride 94 mmol/L (98-107); Creatinine Clearance Estimated 57 mL/min (50-200); Creatinine,Serum 1.00 mg/dl (0.52-1.04); Estimated Glomerular Filt Rate 53 ml/min (>60); GFR (African American) 64 ML/MIN (>60); Globulin 2.7 g/dL (1.3-3.2); Glucose 183 mg/dl (74-100); Lipase 42 U/L (23-300); Potassium 3.9 mmoL/L (3.5-5.1); Sodium 129 mmol/L (136-145); Total Protein,Serum 6.7 g/dl (6.3-8.2)
--- NOTE | 2024-12-18 18:12 | ECG_ITS ---
APPROVED REPORT Exam: Resting ECG HR:69 bpm ECG Measurements Heart Rate 69 AXES AR 195 P 52 QRSd 101 QRS 21 QT 437 T 39 QTc 456 Conclusion Sinus rhythm Normal axis Normal intervals No STEMI Electronically signed by : Sy Garcia, 12/18/2024 23:36:46
[2024-12-18 18:22] LABS: Troponin I < 0.01 ng/ml (0.00-0.034)
[2024-12-18] MEDS: IOPAMIDOL-370 (76%);100ML BOTTLE 75 ML IV (18:28)
[2024-12-18] MEDS: SODIUM CHLORIDE 0.9% 10ML SYR (RAD ONLY) 10 ML IV (18:28)
[2024-12-18 20:30] LABS: Microscopic, Urine URINE MICROSCOPIC (MICROSCOPIC)
[2024-12-18 20:31] LABS: Bilirubin,Urine Negative (Negative); Color,Urine YELLOW (Yellow); Glucose,Urine (UA) Negative (Negative); Ketones,Urine Negative (Negative); Leukocyte Esterase,Urine Negative (Negative); PH,Urine 7.5 (5.0-8.5); Protein,Urine Negative (Negative); Specific Gravity, Urine 1.010 (1.005-1.030); Urobilinogen,Urine 0.2 EU/dl (0.2)
[2024-12-18 20:39] LABS: RBC,Urine Occasional #/hpf (0-3); WBC,Urine Occasional #/hpf (0-3)
[2024-12-18 20:40] LABS: Bacteria,Urine Trace /lpf
[2024-12-18] MEDS: METOCLOPRAMIDE HCL 10MG/2ML VIAL 10 MG IVP (20:48)
== END 2024-12-18 21:32 | disposition home or self-care (01) ==
PROVIDERS: Emergency Provider Student in an Organized Health Care Education/Training Program; PCP Internal Medicine
DX: R10.84 Generalized abdominal pain (principal); E87.1 Hypo-osmolality and hyponatremia; R11.2 Nausea with vomiting, unspecified; R19.7 Diarrhea, unspecified
CPT/HCPCS: 74177; 80053; 81001; 83605; 83690; 84484; 85025; 93005; 96374; 96375; 96376; 99285; J2270; J2405; J2765; Q9967

== ENCOUNTER 2024-12-22 11:40 | Outpatient (CLI) | payer MEDICARE, SELFPAY ==
[2024-12-22 13:51] LABS: Hematocrit 44.2 % (37.0-47.0); Hemoglobin 14.6 g/dL (12.2-16.2); Immature Granulocytes % 0.4 %; Mean Corpuscular HGB Conc 33.0 g/dL (31.8-35.4); Mean Corpuscular Hemoglobin 29.5 pg (27.0-31.2); Mean Corpuscular Volume 89.3 fl (81-99); Nucleated Red Blood Cells % 0 %; Platelet Count 267 K/mm3 (142-424); Red Blood Count 4.95 M/mm3 (4.20-5.40); Red Cell Distribution Width-SD 41.5 fL; White Blood Count 7.1 K/mm3 (4.8-10.8)
[2024-12-22 15:21] LABS: Hemoglobin A1C 5.8 % (4.0-6.0)
[2024-12-22 15:24] LABS: Albumin Level 4.0 g/dl (3.5-5.0); Chloride 94 mmol/L (98-107); Sodium 135 mmol/L (136-145)
[2024-12-22 15:25] LABS: Potassium 4.1 mmoL/L (3.5-5.1)
[2024-12-22 15:27] LABS: Alanine Aminotransferase 23 U/L (12-78); Albumin/Globulin Ratio 1.3 (1.1-1.8); Alkaline Phosphatase 113 U/L (38-126); Anion Gap 12.1 mEq/L (5-15); Aspartate Amino Transferase 26 U/L (14-36); Bilirubin,Total 0.5 mg/dl (0.2-1.3); Blood Urea Nitrogen 16 mg/dl (7-17); Carbon Dioxide 33 mmol/L (22.0-30.0); Cholesterol 174 mg/dl (140-200); Creatinine,Serum 1.00 mg/dl (0.52-1.04); Estimated Glomerular Filt Rate 53 ml/min (>60); GFR (African American) 64 ML/MIN (>60); Globulin 3.0 g/dL (1.3-3.2); Total Protein,Serum 7.0 g/dl (6.3-8.2); Triglycerides 201 mg/dl (30-150)
[2024-12-22 15:28] LABS: Calcium 9.0 mg/dl (8.4-10.2); Glucose 99 mg/dl (74-100); HDL Cholesterol 50 mg/dl (40-60)
== END 2024-12-22 23:59 ==
LOC: LAB.DROPOF 12-23 09:58
PROVIDERS: PCP Internal Medicine; Visit Provider Internal Medicine
DX: I25.10 Atherosclerotic heart disease of native coronary artery without angina pectoris (principal); I10 Essential (primary) hypertension; R73.02 Impaired glucose tolerance (oral); E78.5 Hyperlipidemia, unspecified
CPT/HCPCS: 80053; 80061; 83036; 85025